=== PATIENT | female | born 1950 | race Caucasian/White ===

== ENCOUNTER 2018-03-10 08:13 | Day surgery (SDC) | payer MEDICARE, OTHER ==
[~2018-03-10 08:13] MED LIST: Buffered Lidocaine 0.9% SYRIN* 5 ML/SYR SYRINGE INTRADERM ONE
[2018-03-10] MEDS ORDERED: Bupivacaine 0.5% SDV PF* 30ML VIAL ONE (09:25)
[2018-03-10] MEDS ORDERED: Midazolam* 1 MG/ML 5 ML VIAL (5 MG) ONE (09:34)
[2018-03-10] MEDS ORDERED: fentaNYL* 50 MCG/ML 2 ML VIAL (100 MCG VIAL) ONE (09:34)
[2018-03-10] MEDS ORDERED: Naloxone* 0.4 MG/ML 1 ML VIAL IV PRN (09:45)
[2018-03-10 10:29] VITALS: BP 130/52
[2018-03-10] MEDS ORDERED: Propofol* 10 MG/ML 20 ML BTL IV PUSH ONE (11:11)
--- NOTE | 2018-03-15 03:47 | OP ---
DATE OF OPERATION: 03/10/18 - [facility] DATE OF : 48 SURGEON: Montana Mirza MD RETAIL SALES LEAD: DES Singh ANESTHESIOLOGIST: Yaz Coles MD ANESTHESIA: Local MAC. PRE-OP DIAGNOSIS: Left volar wrist ganglion cyst. POST-OP DIAGNOSIS: Left volar wrist ganglion cyst. OPERATIVE PROCEDURE: Excision of left volar wrist ganglion cyst, which ended up emanating off the carpometacarpal joint. INDICATIONS: Heidy has a quite large prominent cyst right in the area of the wrist flexion crease and the proximal palm; it is about a centimeter and a half , it attenuated the skin and made the skin very thin over the cyst. We talked about aspirating the cyst versus excising it. She wanted to have it excised. We talked about risks and benefits including risks of stiffness, infection, wound problems. She wanted to proceed. ESTIMATED BLOOD LOSS: 2 mL. COMPLICATIONS: None. FINDINGS: As expected. DESCRIPTION OF PROCEDURE: Heidy was seen in the preoperative holding area. The correct side, site, and procedure were identified. We came back to the operating room, the arm was prepped and draped in the usual fashion. I had infiltrated the operative area with 0.25% plain Marcaine prior to making the skin incision. A time- out was performed after the arm was draped. I made a longitudinal incision, which was brought back obliquely over the wrist flexion crease, so as to not cross the crease at 90 degrees. Full-thickness flaps were raised right off the cyst the dermis from the underlying cyst with a [place] blade. I went ahead and underneath the deep aspect of the cyst. I then traced the cyst back radially where it was noted to be emanating from the carpometacarpal joint. The stalk of the cyst was traced back where it was amputated right at the joint capsule. I then used the Bovie cautery to cauterize the capsule and close off the communication with the joint , so as to try to prevent cyst recurrence. Everything was looking good at this point, so the skin was closed with 4-0 nylon suture. Wounds were dressed and a cock-up wrist splint was applied. Tourniquet was deflated and she was taken to the recovery room in stable condition. [id number]/[facility] #: [id number] [facility]
== END 2018-03-10 10:43 | disposition home or self-care (01) ==
LOC: OREAST 08:13
PROVIDERS: ATTEND Orthopaedic Surgery Hand Surgery
DX: M67.432 Ganglion, left wrist (principal); I10 Essential (primary) hypertension; E78.00 Pure hypercholesterolemia, unspecified; Z87.891 Personal history of nicotine dependence; E78.5 Hyperlipidemia, unspecified
CPT/HCPCS: 88305; J2250; J2704; J3010

== ENCOUNTER 2018-06-23 06:55 | Day surgery (SDC) | payer MEDICARE, MEDICAID ==
[2018-06-23] MEDS ORDERED: ceFAZolin 2 GM in NS PREMIX(*) 0 GM/0 ML BAG IVPB ONE (07:07)
[2018-06-23] MEDS ORDERED: Midazolam* 1 MG/ML 2 ML VIAL (2 MG) ONE (07:45)
[2018-06-23] MEDS ORDERED: fentaNYL* 50 MCG/ML 2 ML VIAL (100 MCG VIAL) ONE (07:45)
[2018-06-23] MEDS ORDERED: Lidocaine 2% PF * 5 ML VIAL ONE (07:46)
[2018-06-23] MEDS ORDERED: Propofol* 10 MG/ML 20 ML BTL IV PUSH ONE (07:50)
[2018-06-23] MEDS ORDERED: Scopolamine 1.5 mg* PATCH ONE (08:02)
[2018-06-23] MEDS ORDERED: Bupivacaine 0.25% SDV* 30 ML ONE (08:08)
[2018-06-23 08:29] VITALS: BP 138/61
[2018-06-23] MEDS ORDERED: Naloxone* 0.4 MG/ML 1 ML VIAL IV PRN (08:33)
[2018-06-26] MEDS ORDERED: Scopolamine PATCH Remove* 1 NOTE MISC PATCH OFF ONE (08:34)
== END 2018-06-23 08:48 | disposition home or self-care (01) ==
LOC: OREAST 06:55
PROVIDERS: ATTEND Orthopaedic Surgery Hand Surgery
DX: G56.02 Carpal tunnel syndrome, left upper limb (principal); I49.3 Ventricular premature depolarization; Z53.09 Procedure and treatment not carried out because of other contraindication; I10 Essential (primary) hypertension; E78.00 Pure hypercholesterolemia, unspecified; Z87.891 Personal history of nicotine dependence
CPT/HCPCS: A9270-GY; J0690; J2250; J2704; J3010

== ENCOUNTER 2018-07-14 09:04 | Day surgery (SDC) | payer MEDICARE, MEDICAID ==
[~2018-07-14 09:04] MED LIST changes: +Dexamethasone IV* 4 MG/ML 1 ML (4 MG) IV SLOW PU ONE; +Famotidine IV* 10 MG/ML 2 ML (20 mg) IV ONE
[2018-07-14] MEDS ORDERED: Dexamethasone IV* 4 MG/ML 1 ML (4 MG) ONE (09:06)
[2018-07-14] MEDS ORDERED: Famotidine IV* 10 MG/ML 2 ML (20 mg) ONE (09:06)
[2018-07-14] MEDS ORDERED: ceFAZolin 2 GM PREMIX in ORs 2 GM/50 ML BAG IVPB ONE (09:17)
[2018-07-14] MEDS ORDERED: fentaNYL* 50 MCG/ML 2 ML VIAL (100 MCG VIAL) ONE (10:48)
[2018-07-14] MEDS ORDERED: Propofol* 10 MG/ML 20 ML BTL IV PUSH ONE (10:48)
[2018-07-14] MEDS ORDERED: Lidocaine 2% PF * 5 ML VIAL ONE (10:48)
[2018-07-14] MEDS ORDERED: Midazolam* 1 MG/ML 2 ML VIAL (2 MG) ONE (10:48)
[2018-07-14] MEDS ORDERED: fentaNYL* 50 MCG/ML 2 ML VIAL (100 MCG VIAL) IV PRN (10:51)
[2018-07-14] MEDS ORDERED: Naloxone* 0.4 MG/ML 1 ML VIAL IV PRN (10:51)
[2018-07-14] MEDS ORDERED: PROCHLORPERAZINE INJ 5 MG/ML 2 ML VIAL IV PRN (10:51)
[2018-07-14] MEDS ORDERED: HYDROcodone/ACETAMIN 5-325 MG* 1 TAB PO PRN (10:51)
[2018-07-14] MEDS ORDERED: oxyCODONE TAB* 5 MG TAB PO PRN (10:51)
[2018-07-14] MEDS ORDERED: Bupivacaine 0.25% SDV* 30 ML ONE (10:56)
[2018-07-14] MEDS ORDERED: Ketorolac INJ* 30 MG/ML 1 ML VIAL ONE (11:06)
[2018-07-14] MEDS ORDERED: EPHEDrine (Pressors)* 50 MG/ML VIAL ONE (11:31)
[2018-07-14] MEDS ORDERED: DiMENhydriNATE IV* 50 MG/ML VIAL ONE (11:33)
[2018-07-14] MEDS ORDERED: Ondansetron INJ* 2 MG/ML VIAL ONE (11:42)
[2018-07-14 12:31] VITALS: BP 126/54
--- NOTE | 2018-07-15 07:27 | OP ---
DATE OF OPERATION: 07/14/18 - [facility] DATE OF : 48 SURGEON: Montana Mirza MD CURING PICKLING PACKER: DES Heck. An assistant teaching professor was needed for the procedure to aid in retraction during the neurolysis portion of the procedure. ANESTHESIOLOGIST: Dr. Benitez. ANESTHESIA: General. PRE-OP DIAGNOSIS: Left wrist median nerve neuritis. POST-OP DIAGNOSIS: Left wrist median nerve neuritis. OPERATIVE PROCEDURE: 1. Left wrist median nerve neurolysis of the wrist with nerve wrapping with AxoGuard nerve wrap. 2. Left wrist hypothenar fat pad transfer. INDICATIONS: Heidy had a ganglion cyst removed, and since then she has had very significant median nerve symptoms including pain and paresthesias down to the index and thumb. Motor component was working. These symptoms have not been alleviated despite significant time, she wanted to see if she can get some relief. I told her that I have explored the nerve, I did not think it was injured, but I would explore and if it did look injured, we would address it at that point. She understands the risks and benefits and she would like to proceed. ESTIMATED BLOOD LOSS: 2 mL. COMPLICATIONS: None. FINDINGS: See above and below. DESCRIPTION OF PROCEDURE: Heidy was seen in the preoperative holding area. The correct site, side, and procedure were identified. We came back to the operating room and the arm was prepped and draped in the usual fashion. A time- out was performed. The arm was exsanguinated with the Esmarch and the tourniquet was inflated to 250 mmHg. I made a longitudinal incision in the proximal palm in the standard location for an open carpal tunnel release. Dissection was carried down through the subcutaneous tissue and palmar fascia and a full thickness flap was raised off the transverse carpal ligament and distal end of brachial fascia. I then released the median nerve from distal to proximal just off the radial aspect of hook of the hamate. I came proximally and released the distal antebrachial fascia. I then elevated the transverse carpal ligament in the distal end of brachial fascia to expose the median nerve in its entirety. There was no injury that was grossly visible to the nerve. There was scar tissue in the area where the cyst had been excised. I decided I need to perform a full neurolysis to release the nerve from all that scar tissue. So, I went ahead and did that with the tenotomy scissors circumferentially around the nerve over about 2 or 3 cm segment right at the wrist flexion crease. Care was taken not to injure the nerve during the neurolysis. At this point, I thought in order to prevent further scar tissue formation and adherence to the nerve, I go ahead and wrap the nerve. So, I opened up a 7 x 14 mm AxoGuard nerve wrap. This was trimmed to appropriate length and then wrapped around the nerve and then volarly, it was secured at the ends with a couple of 6-0 Prolene simple interrupted sutures with 1 more additional 6-0 Prolene suture in the middle. The suture was not sewn to the nerve, only to the nerve wrap keeping it fully wrapped around the nerve. This was confirmed by moving the nerve wrap over the nerve after the sutures were all placed. At this point, last thing was left to do was transfer the hypothenar fat pad and so, I went ahead and released the hypothenar fat pad from the dermis over the hypothenar region. Care was taken to preserve the perforators from the ulnar artery. The fat pad was mobilized and then transferred radially and sewn just to the under surface of the transverse carpal ligament just a few mm from the cut edge of the ligament. This padded the nerve very nicely and very nice soft tissue interpositioned between the nerve and the skin. At this point, the hypothenar fat pad transfer was secured with multiple 4-0 Vicryl sutures. At this point, everything was looking good. The nerve was very nicely covered after the hypothenar fat pad transfer. Therefore, I irrigated out the wound. Skin was closed with 4-0 nylon suture, soft dressings were applied, a volar wrist splint was applied. Marcaine was infiltrated into the operative area. Tourniquet was deflated and she was taken to the recovery room in stable condition. [id number]/[facility] #: [id number] GLENDA
== END 2018-07-14 12:43 | disposition home or self-care (01) ==
LOC: OREAST 09:04
PROVIDERS: ATTEND Orthopaedic Surgery Hand Surgery
DX: G56.12 Other lesions of median nerve, left upper limb (principal); Z87.891 Personal history of nicotine dependence; E78.5 Hyperlipidemia, unspecified; G47.33 Obstructive sleep apnea (adult) (pediatric)
CPT/HCPCS: C1763; J0690; J1100; J1240; J1885; J2250; J2405; J2704; J3010

== ENCOUNTER 2018-09-07 10:41 | Emergency (ER) | payer MEDICARE, MEDICAID ==
--- OUTSIDE RECORDS SUMMARY | 2018-09-07 11:01 | XMS REPORT | Continuity of Care Document ---
:1950 External Reference #:[id number] Author Name Lisa Dean Care Team Providers Name Role Phone Guadalupe Santa MD Primary Care Physician Unavailable Payers Type Date Identification Numbers Payment Provider Subscriber Policy Number: [id number] Medicare Blue Ppo Heidy Arroyo PayID: [id number] [address] [address] [place] [address] Policy Number: [id number] Medicaid Heidy Arroyo Group Name: 1 1 [address] PayID: [id number] [place] [address] Onset: 2006 Policy Number: [id number] [employer] Heidy Arroyo Group Number: [id number] [address] [facility] PayID: [id number] [place] [address] Advance Directives Description No Information Available Problems Date Description Provider Status Onset: 04/29/2018 Carpal tunnel syndrome of left wrist Montana Mirza MD Active Onset: 03/01/2018 Ganglion of hand Montana Mirza MD Active Family History Date Family Member(s) Problem(s) Comments General Esophagus Cancer General Throat Cancer General Uterine Cancer General Hypertension General Hypercholesterolemia General Heart Disease General Diabetes Type II General VA Father Esophagus Cancer Father Throat Cancer : (age 76 Years) Father due to Cancer Mother Uterine Cancer Mother Hypertension Mother Hypercholesterolemia Mother Heart Disease Mother due to Cancer () First Son due to Accidental () First Brother Diabetes Type II Second Brother VA Second Brother due to VA () Third Brother due to Homicide () First Sister Diabetes Type II Social History Type Date Description Comments Sex Unknown Marital Status Lives With Male Partner Occupation Retired Cigarette Use Pack Years - 30 ETOH Use Denies alcohol use Tobacco Use Start: Unknown End: Unknown Patient is a former smoker Smoking Status Reviewed: 09/02/18 Patient is a former smoker Allergies, Adverse Reactions, Alerts Description No Known Drug Allergies Medications Medication Date Status Form Strength Qnty SIG Indications Ordering Provider Amlodipine / Active Tablets 2.5mg 1 by Unknown Besylate 0000 mouth every day Simvastatin / Active Tablets 20mg 1 by Unknown 0000 mouth every day Bystolic / Active Tablets 10mg 1 by Unknown 0000 mouth every day Losartan / Active Tablets 50-12.5mg 1 tab Gutierrez, Potassium/Hydroch 0000 daily by MD Ольга lorothiazide mouth Tramadol HCL 06/23/ Hx Tablets 50mg 30tab 1-2 Montana 2017 - s tablets Mirza, 07/25/ by mouth 2017 every 6 hours as needed pain Tramadol HCL 03/09/ Hx Tablets 50mg 30tab 1-2 Montana 2017 - s tablets Mirza, 04/25/ by mouth 2017 every 6 hours as needed pain Bupropion 12/01/ Hx Tablets 75mg two tabs Everett Narayan - shayne FGabbi 02/14/ Susan Barajas M.D. Valsartan / Hx Tablets 160mg 1 by Unknown 0000 - mouth 03/13/ every day 2017 Calcium Carbonate / Hx Tablets 1500(600C 1 tab by Unknown 0000 - a) mg mouth 02/15/ daily 2017 Mometasone / Hx Suspension 50mcg/Act daily as Unknown Furoate 0000 - directed 2017 Levocetirizine / Hx Tablets 5mg 1 by Unknown Dihydrochloride 0000 - mouth 02/15/ every day 2018 Immunizations Description No Information Available Vital Signs Date Vital Result Comment 09/02/2018 10:45am Height 64.5 inches 5'4.50" Weight 185.00 lb Heart Rate 60 /min BP Systolic Sitting 130 mmHg R BP Diastolic Sitting 60 mmHg R Respiratory Rate 16 /min Pain Level 8 BMI (Body Mass Index) 31.3 kg/m2 08/16/2018 3:12pm Height 64.5 inches 5'4.50" Heart Rate 67 /min BP Systolic 108 mmHg BP Diastolic 50 mmHg Respiratory Rate 18 /min Body Temperature 99.4 F Pain Level 9 07/29/2018 11:22am Height 64.5 inches 5'4.50" Weight 184.00 lb BP Systolic Sitting 122 mmHg BP Diastolic Sitting 64 mmHg Respiratory Rate 16 /min Pain Level 0 BMI (Body Mass Index) 31.1 kg/m2 06/15/2018 11:02am Height 64.5 inches 5'4.50" Weight 187.25 lb Heart Rate 67 /min BP Systolic 130 mmHg BP Diastolic 78 mmHg Respiratory Rate 18 /min Pain Level 0 BMI (Body Mass Index) 31.6 kg/m2 05/20/2018 8:37am Height 64.5 inches 5'4.50" Weight 193.00 lb BP Systolic Sitting 126 mmHg BP Diastolic Sitting 78 mmHg Respiratory Rate 17 /min Pain Level 0 just numbness BMI (Body Mass Index) 32.6 kg/m2 04/29/2018 7:54am Height 64.5 inches 5'4.50" Weight 193.00 lb Heart Rate 66 /min BP Systolic Sitting 108 mmHg BP Diastolic Sitting 50 mmHg Respiratory Rate 16 /min Pain Level 0 BMI (Body Mass Index) 32.6 kg/m2 04/13/2018 9:14am Height 64.5 inches 5'4.50" Weight 192.00 lb Heart Rate 60 /min BP Systolic Sitting 110 mmHg BP Diastolic Sitting 66 mmHg Respiratory Rate 12 /min Pain Level 0 BMI (Body Mass Index) 32.4 kg/m2 03/18/2018 8:20am Height 64.5 inches 5'4.50" Body Temperature 98.0 F Pain Level 3 03/01/2018 11:20am Height 64.5 inches 5'4.50" Weight 196.00 lb BP Systolic Sitting 132 mmHg BP Diastolic Sitting 72 mmHg Respiratory Rate 16 /min Pain Level 2 ache with pressure. BMI (Body Mass Index) 33.1 kg/m2 12/03/2003 1:34pm Height 63 inches Weight 151.00 lb Heart Rate 86 /min BP Systolic Sitting 130 mmHg BP Diastolic Sitting 60 mmHg BP Systolic Standing 130 mmHg BP Diastolic Standing 70 mmHg BMI (Body Mass Index) 26.7 kg/m2 Results Test Date Facility Test Result H/L Range Note Laboratory test 03/10/2018 [facility] Surgical SEE RESULT 1 , [address] [place] [address] [phone] 1 [id number] 2 SEE RESULT BELOW Name: HEIDY ARROYO : [address]: Montana Mirza MD Acct: [id number] Unit: [id number] AGE: 67 Location: [facility] Re03/10/18 SEX: F Status: DEP SDC SPEC: [id number] RANDALL: 03/10/180959 [facility] DR: Montana Mirza MD REQ: [id number] RECD: 03/10/18 STATUS: SOUT _ ORDERED: LEVEL 4 COMMENTS: [id number] FINAL DIAGNOSIS Left wrist, excision: -- Proliferating pilar tumor. PRE-OPERATIVE DIAGNOSIS Left wrist mass GROSS DESCRIPTION The specimen is received in formalin labeled, Left Wrist Ganglion, and consists of a 1.3 by up to 1.3 x 0.7 cm araya-pink irregular rubbery focally cystic subcutaneous soft tissue fragments partially surfaced by a 1.4 x 0.3 cm araya-white skin ellipse with a central 0.2 x 0.2 cm granular to scabrous area. The specimen is inked, serially sectioned and entirely submitted in one cassette. Signed by and Reported on: Juli Kidd MD 03/11/18 1324 END OF REPORT DEPARTMENT OF PATHOLOGY, [address] [place] [address] Travis Pantoja M.D. Director [facility] # [id number] Procedures Date Code Description Status 07/14/2018 80825 Carpal Tunnel Release Completed 07/14/2018 17798 Carpal Tunnel Release Completed 07/14/2018 12053 Skin Tissue Rearrange To 10 SQ CM Completed FRHD/CHK/CHN/MTH/NK/Ax/Gen/H/FT 07/14/2018 87418 Skin Tissue Rearrange To 10 SQ CM Completed FRHD/CHK/CHN/MTH/NK/Ax/Gen/H/FT 03/10/2018 15652 Excision Ganglion Wrist/ Dorsal Or Volar; Primary Completed 03/10/2018 47361 Excision Ganglion Wrist/ Dorsal Or Volar; Primary Completed 03/01/2018 44236 Rad Exam; Wrist, Comp, Min 3 Views Completed 12/12/2003 38234 ECHO/Stress Completed 12/12/2003 51683 Stress Test Completed 12/06/2003 17787 Pulse Doppler & Continuous Wave Completed 12/06/2003 08018 Pulse Doppler & Continuous Wave Completed 12/06/2003 55654 Echocardiogram Completed 12/03/2003 97027 EKG Tracing & Interpretation Completed Encounters Type Date Location Provider Dx Diagnosis Office Visit 04/13/2018 Orthopedic Marcos Cole, G56.02 Carpal tunnel 9:30a [employer] Customer Sales Representative AT syndrome, left Timi upper limb Office Visit 03/01/2018 Orthopedic Montana Mirza, M67.442 Ganglion, left 10:30a [employer] Customer Sales Representative AT hand Timi M25.532 Pain in left wrist Office Visit 04/11/2008 Neurosurgery Jamel Warren 722.10 Intervertebral Disc 4:00p [employer] Customer Sales Representative AT Julio Hatfield 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
--- OUTSIDE RECORDS SUMMARY | 2018-09-07 11:02 | XMS REPORT | Continuity of Care Document ---
:1950 External Reference #:[id number] Author Name Guadalupe Santa MD Address [address] [place] [address] Care Team Providers Name Role Phone Guadalupe Santa MD Primary Care Physician Unavailable Payers Type Date Identification Numbers Payment Provider Subscriber Effective: Policy Number: [id number] BCBS Medicare Blue Heidy Morillo 2014 Group Number: [id number] [address] [address] PayID: [id number] [place] [address] Policy Number: [id number] Medicaid ### >12 Heidy Morillo PayID: [id number] [address] [place] [address] Advance Directives Description No Information Available Problems Date Description Provider Status Onset: 03/12/2014 Mixed hyperlipidemia Guadalupe Santa MD Active Onset: 03/12/2014 Allergic rhinitis Guadalupe Santa MD Active Onset: 01/24/2010 Psoriasis Guadalupe Santa MD Active Onset: 08/06/2015 Essential hypertension Guadalupe Santa MD Active Onset: 04/06/2017 Solitary nodule of lung Guadalupe Santa MD Active Onset: 02/18/2018 Type 2 diabetes mellitus Guadalupe Santa MD Active Onset: 08/22/2018 Impaired fasting glycaemia Guadalupe Santa MD Active Onset: 05/23/2018 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 Onset: 05/23/2018 Chronic nonalcoholic liver disease Guadalupe Santa MD Active Onset: 05/23/2018 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 Onset: 01/21/2016 Impaired fasting glycaemia Guadalupe Santa MD Inactive Inactive: 04/01/2018 Onset: 02/20/2010 Gastroesophageal reflux disease Guadalupe Santa MD Resolved Resolved: 02/19/2015 Family History Date Family Member(s) Problem(s) Comments General Cancer, Esophagus Father Cancer, Throat Father Cancer, Esophagus : (age Father due to Cancer, Throat 73 Years) Mother Cancer, Uterine Mother Hypertension : (age Mother due to Cancer uterine 94 Years) Mother Hypercholesterolemia Mother Heart Disease has a pacer : (age First Son due to Accident to farm accident 16 Years) First Brother Diabetes, Adult Diabetes Mellitus,II : (age Second Brother due to [place] 62 Years) : (age Third Brother due to Murdered 40 Years) First Sister Diabetes, Adult Diabetes Mellitus,II Social History Type Date Description Comments Sex Unknown Education Highest level completed, 12th grade Marital Status Lives With Male Partner Smoke-Free Home is smoke-free Pets None 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 Abuse No history of abuse Hobbies Gardening Drive Patient drives Tobacco Use Start: 09/13/68 End: Former Cigarette Smoker 32 pack year history - 08/13/02 no longer meets criteria for low dose lung cancer screening Smoking Status Reviewed: 11/22/17 Former Cigarette Smoker 32 pack year history - no longer meets criteria for low dose lung cancer screening ETOH Use Denies alcohol use Tobacco Use Start: Unknown End: Patient is a former Unknown smoker Allergies, Adverse Reactions, Alerts Description No Known Drug Allergies Medications Medication Date Status Form Strength Qnty SIG Indications Ordering Provider Cetirizine HCL 04/26 Active Tablets 10mg 30tab 1 by mouth s every day MD Guadalupe Amlodipine 10/13 Active Tablets 2.5mg 60tab 2 by mouth I10 Kiet Besbettina s every day MD Guadalupe Simvastatin 09/23 Active Tablets 20mg 30tab 1 tab by E78.2 Kiet s mouth MD Guadalupe every day Bystolic 09/01 Active Tablets 10mg 30tab 1 by mouth I10 Kiet, s every day MD Guadalupe Calcium Carbonate 01/24 Active Tablets 1500mg 1 PO qd MD Guadalupe Losartan Active Tablets 50-12.5mg 1 by mouth I10 Unknown Potassium/Hydroch /0000 every day lorothiazide Multivitamin Active Chewtabs one orally Unknown Adult Extra /0000 daily Vitamin C Valsartan 04/01 Hx Tablets 40mg 1 by mouth I10 Kiet, /2017 every day MD Guadalupe - 04/01 Amlodipine 09/23 Hx Tablets 2.5mg 30tab 1 by mouth I10 Kiet, Bes s every day MD Guadalupe - 10/13 Valsartan 08/10 Hx Tablets 160mg 90tab 1 by mouth I10 Kiet, s daily MD Guadalupe - 04/01 Bystolic 07/29 Hx Tablets 5mg 30tab 1 pill by I10 Kiet, s mouth once MD Guadalupe - daily 09/01 Valsartan 07/15 Hx Tablets 40mg 90tab 1 by mouth I10 Kiet, s every day MD Guadalupe - 08/10 Valsartan 07/15 Hx Tablets 80mg 30tab 1 by mouth Kiet, s every day MD Guadalupe - 09/01 Valsartan 07/13 Hx Tablets 40mg 90tab 3 by mouth I10 Kiet, s every day MD Guadalupe - 07/15 Valsartan 07/06 Hx Tablets 80mg 30tab 1 by mouth I10 Kiet, s every day MD Guadalupe - 07/13 Metoprolol 06/18 Hx Tablets ER 50mg 30tab 1 by mouth I10 Kiet, Succinate 24HR s every day MD Guadalupe - 07/29 Valsartan 06/11 Hx Tablets 40mg 30tab 1 by mouth I10 Kiet, s every day MD Guadalupe - 07/06 Lisinopril 06/03 Hx Tablets 20mg 1 by mouth I10 Kiet, /2016 every day MD Guadalupe - 06/11 Hydrochlorothiazi 06/03 Hx Tablets 12.5mg 30tab 1 by mouth I10 Kiet, de s every day MD Guadalupe - 06/11 Lisinopril 04/30 Hx Tablets 40mg 90tab 1 by mouth I10 Kiet, s every day MD Guadalupe - 06/03 Clotrimazole/Beta 04/24 Hx Cream 1-0.05% 15gm apply L40.9 Kiet methasone twice a MD Guadalupe Dipropionate - day x 2 04/05 weeks. Clobetasol 05 Hx Solution 0.05% 50ml apply L40.9 Kiet Propionate topically MD Guadalupe - twice a 04/05 day to affected area Glucosamine 08/06 Hx Tablets Kiet MD Guadalupe Complex Advanced - 04/05 Vitamin B Complex 08/06 Hx Tablets 30tab 1 by mouth Kiet s every day MD Guadalupe - 11/22 Zostavax 12/13 Hx Solution [id number]/ 1unit 1 dose Rec 0.65ML s intramuscu MD Guadalupe - lar x 1 02/19 [facility] Allergy 06/05 Hx Capsules 10mg 1 by mouth Kiet every day MD Guadalupe - as needed 04/05 allergies Simvastatin 03/15 Hx Tablets 40mg 90tab 1 by mouth E78.2 s every day MD Guadalupe - 09/23 Betamethasone 04/10 Hx Cream 0.05% 45uni apply to Yunier Santa ts affected MD Guadalupe - areas 12/13 twice a day as needed Flonase 10/31 Hx Suspension 50mcg/Act 16uni 2 sprays ts to each MD Guadalupe - nostril 08/06 daily for nasal congestion Ketoconazole 10/31 Hx Shampoo 2% 120un use daily L40.9 Kiet its as needed MD Guadalupe - 01/26 Lisinopril Hx Tablets 20mg 90tab take one I10 s tablet by MD Guadalupe - mouth 04/30 every day Clobetasol Hx Cream 0.05% apply to Unknown Propionate /0000 area twice Emollient - a day for 01/26 two weeks Calcipotriene Hx Ointment 0.005% apply to Unknown /0000 affected - area 01/26 twice a day as needed Mometasone Hx Suspension 50mcg/Act qd Unknown Fur / - 04/26 Levocetirizine Hx Tablets 5mg 1 PO qd Unknown Dihydrochloride /0000 - 04/26 Losartan 00 Hx Tablets 25mg 1 by mouth I10 Helen Gutierrez /0000 every day Ольга LAKHANI - - please 04/04 dose Medications Administered in Office Medication Date Status Form Strength Qnty SIG Indications Ordering Provider PPD Administered Injection Unknown 5 Immunizations CPT Code Status Date Vaccine Reaction Lot # [id number] Given 06/15/2018 Flu Vaccine NOS 05379 Given 06/15/2018 Fluzone Highdose Age 65 And Over Preservative & Antibiotic Free 95091 Given 02/18/2018 Prevnar 13 Pneumococal Conjugate Pt tolerated well [id number] Vaccine Q2039 Given 06/16/2017 Flu Vaccine NOS Q2039 Given 06/30/2016 Flu Vaccine NOS 34833 Given 08/02/2015 Hepatitis B Vac Ped/Adolescent 3 Dose Schedule Q2039 Given 07/15/2015 Flu Vaccine NOS 84643 Given 02/12/2015 Hepatitis B Vac Ped/Adolescent 3 Dose Schedule 20261 Given 01/19/2015 Zoster (Zostavax) 76542 Given 01/01/2015 Hepatitis B Vac Ped/Adolescent 3 Dose Schedule 38158 Given 09/04/2014 Pneumococcal 23 Immunization Adult Or Immunosuppressed Patient 16976 Given 06/15/2014 Fluzone Highdose Age 65 And Over Preservative & Antibiotic Free 18664 Given 06/27/2013 Afluria Or Fluvirin Flu Vac Intramuscular 51748 Given 07/06/2011 Afluria Or Fluvirin Flu Vac VIS DATE 04/07/11 Intramuscular 04365 Given 03/30/2011 Tdap (Adacel) Ages 7 And Above Only 79046 Refused 05/23/2018 Afluria Or Fluvirin Flu Vac Intramuscular 88362 Refused 08/06/2015 Prevnar 13 Pneumococal Conjugate DECLINED PER TRIAGE. Vaccine Vital Signs Date Vital Result Comment 08/22/2018 12:58pm Weight 186.00 lb Heart Rate 69 /min BP Systolic 134 mmHg BP Diastolic 70 mmHg Respiratory Rate 16 /min Height 62.75 inches 5'2.75" O2 % BldC Oximetry 98 % Ra BMI (Body Mass Index) 33.2 kg/m2 05/23/2018 1:12pm Weight 184.00 lb Heart Rate 70 /min BP Systolic 132 mmHg BP Diastolic 80 mmHg Respiratory Rate 16 /min Height 62.75 inches 5'2.75" 11/22/17 BMI (Body Mass Index) 32.9 kg/m2 04/01/2018 10:50am Weight 196.00 lb Heart Rate 76 /min BP Systolic 110 mmHg BP Diastolic 70 mmHg Respiratory Rate 18 /min Height 62.75 inches 5'2.75" 11/22/17 BMI (Body Mass Index) 35.0 kg/m2 02/18/2018 1:01pm Weight 196.00 lb Heart Rate 68 /min BP Systolic 130 mmHg BP Diastolic 80 mmHg Respiratory Rate 18 /min Height 62.75 inches 5'2.75" 11/22/17 BMI (Body Mass Index) 35.0 kg/m2 11/22/2017 9:57am Weight 201.12 lb Heart Rate 72 /min BP Systolic 120 mmHg BP Diastolic 74 mmHg Respiratory Rate 18 /min Height 62.75 inches 5'2.75" 11/22/17 BMI (Body Mass Index) 35.9 kg/m2 09/23/2017 10:37am Weight 198.00 lb Heart Rate 76 /min BP Systolic 160 mmHg BP Diastolic 70 mmHg BP Systolic Recheck 150 mmHg BP Diastolic Recheck 82 mmHg Respiratory Rate 18 /min Height 63 inches 5'3" 09/23/17 BMI (Body Mass Index) 35.1 kg/m2 09/01/2017 8:32am Weight 196.00 lb Heart Rate 72 /min BP Systolic 170 mmHg pts b/p cuff 174/80 BP Diastolic 70 mmHg pts b/p cuff 174/80 Respiratory Rate 18 /min Height 63 inches 5'3" 01/26/17 BMI (Body Mass Index) 34.7 kg/m2 08/10/2017 1:32pm Weight 200.00 lb Heart Rate 80 /min BP Systolic 122 mmHg BP Diastolic 70 mmHg Respiratory Rate 18 /min Height 63 inches 5'3" 01/26/17 BMI (Body Mass Index) 35.4 kg/m2 07/29/2017 1:04pm Weight 193.00 lb Heart Rate 76 /min BP Systolic 152 mmHg BP Diastolic 72 mmHg Respiratory Rate 18 /min Height 63 inches 5'3" 01/26/17 BMI (Body Mass Index) 34.2 kg/m2 07/06/2017 9:56am Weight 192.00 lb Heart Rate 76 /min BP Systolic 140 mmHg BP Diastolic 70 mmHg Respiratory Rate 18 /min Height 63 inches 5'3" 01/26/17 BMI (Body Mass Index) 34.0 kg/m2 06/18/2017 3:22pm Weight 192.00 lb Heart Rate 76 /min BP Systolic 150 mmHg BP Diastolic 70 mmHg Respiratory Rate 18 /min Height 63 inches 5'3" 01/26/17 BMI (Body Mass Index) 34.0 kg/m2 06/11/2017 10:07am Weight 192.00 lb Heart Rate 84 /min BP Systolic 142 mmHg BP Diastolic 70 mmHg Respiratory Rate 18 /min Height 63 inches 5'3" 01/26/17 BMI (Body Mass Index) 34.0 kg/m2 06/03/2017 1:58pm Weight 192.00 lb Heart Rate 84 /min BP Systolic 150 mmHg pts cuff 158/76 BP Diastolic 70 mmHg pts cuff 158/76 Respiratory Rate 18 /min Height 63 inches 5'3" 01/26/17 BMI (Body Mass Index) 34.0 kg/m2 05/28/2017 10:18am Weight 192.00 lb Heart Rate 88 /min BP Systolic 130 mmHg BP Diastolic 68 mmHg Respiratory Rate 18 /min Height 63 inches 5'3" 01/26/17 BMI (Body Mass Index) 34.0 kg/m2 04/06/2017 2:33pm Weight 195.00 lb Heart Rate 76 /min BP Systolic 134 mmHg BP Diastolic 72 mmHg Respiratory Rate 16 /min Height 63 inches 5'3" 01/26/17 BMI (Body Mass Index) 34.5 kg/m2 01/26/2017 9:53am Weight 195.00 lb Heart Rate 80 /min BP Systolic 132 mmHg BP Diastolic 62 mmHg Respiratory Rate 18 /min Height 63 inches 5'3" 01/26/17 BMI (Body Mass Index) 34.5 kg/m2 07/31/2016 1:05pm Weight 186.00 lb Heart Rate 76 /min BP Systolic 122 mmHg BP Diastolic 60 mmHg Respiratory Rate 16 /min Height 63 inches 5'3" 07/31/16 BMI (Body Mass Index) 32.9 kg/m2 05/13/2016 11:15am Weight 179.00 lb Heart Rate 80 /min BP Systolic 152 mmHg BP Diastolic 60 mmHg Respiratory Rate 18 /min Height 63 inches 5'3" BMI (Body Mass Index) 31.7 kg/m2 04/24/2016 9:14am Weight 177.00 lb Heart Rate 76 /min BP Systolic 112 mmHg BP Diastolic 70 mmHg Respiratory Rate 18 /min Height 63 inches 5'3" BMI (Body Mass Index) 31.4 kg/m2 01/21/2016 8:04am Weight 191.00 lb Heart Rate 68 /min BP Systolic 138 mmHg BP Diastolic 70 mmHg Respiratory Rate 18 /min Height 63 inches 5'3" BMI (Body Mass Index) 33.8 kg/m2 08/06/2015 9:05am Weight 189.00 lb Heart Rate 76 /min BP Systolic 140 mmHg BP Diastolic 70 mmHg Respiratory Rate 18 /min Height 63 inches 5'3" BMI (Body Mass Index) 33.5 kg/m2 02/19/2015 9:09am Weight 185.00 lb Heart Rate 68 /min BP Systolic 130 mmHg BP Diastolic 60 mmHg Respiratory Rate 18 /min Height 63 inches 5'3" BMI (Body Mass Index) 32.8 kg/m2 12/13/2014 3:55pm Weight 193.00 lb Heart Rate 76 /min BP Systolic Recheck 132 mmHg BP Diastolic Recheck 70 mmHg Respiratory Rate 18 /min Height 63 inches 5'3" BMI (Body Mass Index) 34.2 kg/m2 09/04/2014 9:23am Weight 180.00 lb Heart Rate 76 /min BP Systolic 124 mmHg BP Diastolic 72 mmHg Respiratory Rate 18 /min Height 63 inches 5'3" 06/12/2014 8:06am Weight 180.00 lb Heart Rate 64 /min BP Systolic 114 mmHg BP Diastolic 60 mmHg Respiratory Rate 17 /min Height 63 inches 5'3" 06/05/2014 10:26am Weight 180.00 lb Heart Rate 64 /min BP Systolic 140 mmHg BP Diastolic 60 mmHg Respiratory Rate 18 /min Height 63 inches 5'3" 03/12/2014 8:51am BP Systolic 136 mmHg BP Diastolic 70 mmHg 03/12/2014 8:51am Weight 186.38 lb Heart Rate 78 /min BP Systolic 148 mmHg BP Diastolic 64 mmHg Respiratory Rate 18 /min Height 63 inches 5'3" 02/20/2014 1:41pm Body Temperature 98.5 F Weight 186.00 lb Heart Rate 84 /min BP Systolic 150 mmHg BP Diastolic 70 mmHg Respiratory Rate 18 /min Height 63 inches 5'3" Results Test Date Facility Test Result H/L Range Note Basic (BMP) 08/11/2018 [facility] Sodium 143 mmol/L 135-146 1, 2 Potassium 4.2 mmol/L 3.5-5.2 Chloride# 106 mmol/L 97-110 3 Carbon Dioxide 28 mmol/L 24-34 Glucose 118 mg/dL High 70-105 BUN 21 mg/dL 6-26 Creatinine 0.9 mg/dL 0.5-1.4 Calcium 9.9 mg/dL 8.5-10.2 Non Kate Egfr >60 >60 4 Kate Egfr >60 >60 5 Anion Gap 9 mmol/L 5-15 6 Hemoglobin A1c 08/11/2018 [facility] Hemoglobin A1c 6.3 % High 4.1-5.9 Estimated Average Glucose Calc 134 mg/dL 71-140 Lipid Treatment 08/11/2018 [facility] Cholesterol 152 mg/dL 50-199 Triglycerides 111 mg/dL 30-200 HDL 43 mg/dL 35-85 7 Chol/ HDL Ratio 3.6 ratio Low 3.7-5.6 VLDL 22 mg/dL 2-29 LDL (Calc) 87 mg/dL 20-99 8 Alt 18 U/L 3-42 Ast 15 U/L 8-42 Laboratory test finding 08/11/2018 [facility] TSH 0.93 uIU/mL 0.35-4.94 Basic (BMP) 05/19/2018 [facility] Sodium 142 mmol/L 135-146 9 Potassium 4.2 mmol/L 3.5-5.2 Chloride# 105 mmol/L 97-110 10 Carbon Dioxide 29 mmol/L 24-34 Glucose 116 mg/dL High 70-105 BUN 20 mg/dL 6-26 Creatinine 0.9 mg/dL 0.5-1.4 Calcium 9.8 mg/dL 8.5-10.2 Non Kate Egfr >60 >60 11 Kate Egfr >60 >60 12 Anion Gap 8 mmol/L 5-15 13 Hemoglobin A1c 05/19/2018 [facility] Hemoglobin A1c 6.4 % High 4.1-5.9 Estimated Average Glucose Calc 137 mg/dL 71-140 Hemoglobin A1c 03/31/2018 [facility] Hemoglobin A1c 6.9 % High 4.1-5.9 Estimated Average Glucose Calc 151 mg/dL High 71-140 Basic (BMP) 02/15/2018 [facility] Sodium 140 mmol/L 135-146 14, 15 Potassium 4.0 mmol/L 3.5-5.2 Chloride# 104 mmol/L 97-110 16 Carbon Dioxide 27 mmol/L 24-34 Glucose 131 mg/dL High 70-105 BUN 19 mg/dL 6-26 Creatinine 0.9 mg/dL 0.5-1.4 Calcium 9.2 mg/dL 8.5-10.2 Non Kate Egfr >60 >60 17 Kate Egfr >60 >60 18 Anion Gap 9 mmol/L 5-15 19 Hemoglobin A1c 02/15/2018 [facility] Hemoglobin A1c 6.8 % High 4.1-5.9 Estimated Average Glucose Calc 148 mg/dL High 71-140 Lipid Treatment 02/15/2018 [facility] Cholesterol 134 mg/dL 50-199 Triglycerides 93 mg/dL 30-200 HDL 42 mg/dL 35-85 20 Chol/ HDL Ratio 3.2 ratio Low 3.7-5.6 VLDL 19 mg/dL 2-29 LDL (Calc) 73 mg/dL 20-99 21 Alt 22 U/L 3-42 Ast 16 U/L 8-42 Continuous Oximetry 12/06/2017 [facility] Oximetry 95 % N 93-98 22 (315)- - Fio2 21 N 21-100 Heart Rate 92 BPM Patient Status RESTING Nocturnal Oximetry 12/06/2017 [facility] Low Oximetry 84 % Low 93-98 (315)- - Fio2 21 N 21-100 Heart Rate 75 BPM Duration Of Study 437 MINUTES Total Time Below 88% 14.1 MINUTES Hemoglobin A1c 11/18/2017 [facility] Hemoglobin A1c 6.7 % High 4.1-5.9 23 Estimated Average Glucose Calc 146 mg/dL High 71-140 Comprehensive Met Panel-[facility] 11/18/2017 [facility] Sodium 141 mmol/L 135- 146 24 Potassium 4.5 mmol/L 3.5-5.2 Chloride# 106 mmol/L 97-110 25 Carbon Dioxide 26 mmol/L 24-34 Glucose 133 mg/dL High 70-105 BUN 19 mg/dL 6-26 Creatinine 0.8 mg/dL 0.5-1.4 Calcium 9.3 mg/dL 8.5-10.2 Total Protein 7.0 g/dL 6.0-8.0 Albumin 4.4 g/dL 3.6-4.9 Globulin 2.6 g/dL 2.0-3.5 A/G Ratio 1.7 Ratio 1.0-2.2 Total Bilirubin 0.4 mg/dL 0.1-1.3 Alkaline Phosphatase 53 U/L 24-140 Alt 26 U/L 3-42 Ast 18 U/L 8-42 Kate Egfr >60 >60 26 Non Kate Egfr >60 >60 27 Anion Gap 9 mmol/L 5-15 28 Hemoglobin A1c 08/04/2017 [facility] Hemoglobin A1c 6.4 % High 4.1-5.9 Estimated Average Glucose Calc 137 71-140 Basic ([facility]) 08/04/2017 [facility] Sodium 141 mmol/L 135-146 29 Potassium 4.4 mmol/L 3.5-5.2 Chloride# 105 mmol/L 97-110 30 Carbon Dioxide 24 mmol/L 24-34 Glucose 115 mg/dL High 70-105 Creatinine 0.8 mg/dL 0.5-1.4 Calcium 9.6 mg/dL 8.5-10.2 Non Kate Egfr >60 >60 31 Kate Egfr >60 >60 32 Anion Gap 12 mmol/L 7-16 33 BUN 18 mg/dL 6-26 Lipid Treatment 08/04/2017 [facility] Cholesterol 139 mg/dL 50-199 Triglycerides 102 mg/dL 30-200 HDL 45 mg/dL 35-85 34 Chol/ HDL Ratio 3.1 ratio Low 3.7-5.6 VLDL 20 mg/dL 2-29 LDL (Calc) 74 mg/dL 20-99 35 Alt 20 U/L 3-42 Ast 15 U/L 8-42 Laboratory test 06/18/2017 [facility] Troponin-I < 0.015 ng/mL 36 finding (315)- - Laboratory test 06/18/2017 [facility] CK 93 U/L N 26- 192 finding (315)- - Basic (BMP) 06/03/2017 [facility] Sodium 142 mmol/L 135-146 37 Potassium 4.2 mmol/L 3.5-5.2 Chloride# 106 mmol/L 97-110 38 Carbon Dioxide 26 mmol/L 24-34 Glucose 134 mg/dL High 70-105 BUN 15 mg/dL 6-26 Creatinine 0.8 mg/dL 0.5-1.4 Calcium 9.7 mg/dL 8.5-10.2 Non Kate Egfr >60 >60 39 Kate Egfr >60 >60 40 Anion Gap 10 mmol/L 7-16 41 Hemoglobin A1c 04/07/2017 [facility] Hemoglobin A1c 6.5 % High 4.1-5.9 Estimated Average Glucose Calc 140 71-140 Laboratory test 04/07/2017 [facility] Hepatitis C Virus NONREACTIVE Nonreactive finding Antibody CBC With Auto Diff 04/07/2017 [facility] WBC 4.1 K/uL 4.1-11.0 RBC 4.29 M/uL 4.00-5.40 Hemoglobin 12.8 gm/dL 12.0-16.0 Hematocrit 38.1 % 36.0-47.0 MCV 88.9 fL 80.0-97.0 MCH 29.8 pg 27.0-32.0 MCHC 33.6 g/dL 32.0-36.0 RDW 13.1 % 11.5-14.5 PLT Count 225 K/ul 140-400 Neutrophil 48.3 % 35.0-75.0 Lymphocyte 41.5 % 16.0-52.0 Monocyte 5.6 % 2.0-10.0 Eosinophil 3.6 % 0.0-5.0 Basophil 1.0 % 0.0-4.0 Abs Neutrophils 2.0 K/uL Low 2.1-8.0 Abs Lymphocytes 1.7 K/uL 0.8-5.5 Abs Monocytes 0.2 K/uL 0.1-1.0 Abs Eosinophils 0.1 K/uL 0.0-0.5 Abs Basophils 0.0 K/uL 0.0-0.3 Comprehensive Met Panel-[facility] 04/07/2017 [facility] Sodium 139 mmol/L 135- 146 42 Potassium 4.4 mmol/L 3.5-5.2 Chloride# 103 mmol/L 97-110 43 Carbon Dioxide 28 mmol/L 24-34 Glucose 116 mg/dL High 70-105 BUN 14 mg/dL 6-26 Creatinine 0.9 mg/dL 0.5-1.4 Calcium 9.3 mg/dL 8.5-10.2 Total Protein 6.9 g/dL 6.0-8.0 Albumin 4.2 g/dL 3.6-4.9 Globulin 2.7 g/dL 2.0-3.5 A/G Ratio 1.6 Ratio 1.0-2.2 Total Bilirubin 0.4 mg/dL 0.1-1.3 Alkaline Phosphatase 57 U/L 24-140 Alt 22 U/L 3-42 Ast 16 U/L 8-42 Kate Egfr >60 >60 44 Non Kate Egfr >60 >60 45 Anion Gap 8 mmol/L 7-16 46 [facility] 139 mg/dL 50-199 47 Triglycerides 70 mg/dL 30-200 HDL 44 mg/dL 35-85 48 Chol/ HDL Ratio 3.2 ratio Low 3.7-5.6 VLDL 14 mg/dL 2-29 LDL (Calc) 82 mg/dL 20-99 49 Alt 20 U/L 3-42 Ast 16 U/L 8-42 CBC With Auto Diff 01/20/2017 [facility] WBC 4.5 K/uL 4.1-11.0 RBC 4.39 M/uL 4.00-5.40 Hemoglobin 12.9 gm/dL 12.0-16.0 Hematocrit 39.3 % 36.0-47.0 MCV 89.5 fL 80.0-97.0 MCH 29.5 pg 27.0-32.0 MCHC 32.9 g/dL 32.0-36.0 RDW 13.4 % 11.5-14.5 PLT Count 224 K/ul 140-400 Neutrophil 51.6 % 35.0-75.0 Lymphocyte 37.5 % 16.0-52.0 Monocyte 6.1 % 2.0-10.0 Eosinophil 3.8 % 0.0-5.0 Basophil 1.0 % 0.0-4.0 Abs Neutrophils 2.3 K/uL 2.1-8.0 Abs Lymphocytes 1.7 K/uL 0.8-5.5 Abs Monocytes 0.3 K/uL 0.1-1.0 Abs Eosinophils 0.2 K/uL 0.0-0.5 Abs Basophils 0.0 K/uL 0.0-0.3 Hemoglobin A1c 01/20/2017 [facility] Hemoglobin A1c 6.4 % High 4.1-5.9 Estimated Average Glucose Calc 137 71-140 Basic (BMP) 01/20/2017 [facility] Sodium 140 mmol/L 135-146 50 Potassium 5.3 No visible h <SEE NOTE> mmol/L High 3.5-5.2 51 Chloride# 106 mmol/L 97-110 52 Carbon Dioxide 31 mmol/L 24-34 Glucose 115 mg/dL High 70-105 BUN 20 mg/dL 6-26 Creatinine 0.8 mg/dL 0.5-1.4 Calcium 9.4 mg/dL 8.5-10.2 Non Kate Egfr >60 >60 53 Kate Egfr >60 >60 54 Anion Gap 8 mmol/L 7-16 55 Laboratory test finding 01/20/2017 [facility] TSH 1.35 uIU/mL 0.35-4.94 Lipid Treatment 07/16/2016 [facility] Cholesterol 146 mg/dL 50-199 56 Triglycerides 79 mg/dL 30-200 HDL 48 mg/dL 35-85 57 Chol/ HDL Ratio 3.0 ratio Low 3.7-5.6 VLDL 16 mg/dL 2-29 LDL (Calc) 82 mg/dL 20-99 58 Alt 17 U/L 3-42 Ast 15 U/L 8-42 Basic ([facility]) 07/16/2016 [facility] Sodium 139 mmol/L 134-142 Potassium 4.3 mmol/L 3.5-5.2 Chloride 106 mmol/L 97-109 Carbon Dioxide 26 mmol/L 24-34 Glucose 104 mg/dL 70-105 BUN 15 mg/dL 6-26 Creatinine 0.6 mg/dL 0.5-1.4 Calcium 9.3 mg/dL 8.5-10.2 Anion Gap 11 mmol/L 6-14 Non Kate Egfr >60 >60 59 Kate Egfr >60 >60 60 Laboratory test finding 07/16/2016 [facility] Hemoglobin A1c 6.1 % High 4.1- 5.9 Basic ([facility]) 04/07/2016 [facility] Sodium 140 mmol/L 134-142 61 Potassium 4.3 mmol/L 3.5-5.2 Chloride 107 mmol/L 97-109 Carbon Dioxide 28 mmol/L 24-34 Glucose 101 mg/dL 70-105 BUN 16 mg/dL 6-26 Creatinine 0.8 mg/dL 0.5-1.4 Calcium 9.5 mg/dL 8.5-10.2 Anion Gap 9 mmol/L 6-14 Non Kate Egfr >60 >60 62 Kate Egfr >60 >60 63 Laboratory test finding 04/07/2016 [facility] Hemoglobin A1c 6.0 % High 4.1- 5.9 Lipid Treatment 01/10/2016 [facility] Cholesterol 135 mg/dL 50-199 64 Triglycerides 100 mg/dL 30-200 HDL 43 mg/dL 35-85 65 Chol/ HDL Ratio 3.1 ratio Low 3.7-5.6 VLDL 20 mg/dL 2-29 LDL (Calc) 72 mg/dL 20-99 66 Alt 21 U/L 3-42 Ast 17 U/L 8-42 Basic (BMP) 01/10/2016 [facility] Sodium 136 mmol/L 134-142 Potassium 4.4 mmol/L 3.5-5.2 Chloride 101 mmol/L 97-109 Carbon Dioxide 30 mmol/L 24-34 Glucose 107 mg/dL High 70-105 BUN 16 mg/dL 6-26 Creatinine 0.8 mg/dL 0.5-1.4 Calcium 9.3 mg/dL 8.5-10.2 Anion Gap 9 mmol/L 6-14 Non Kate Egfr >60 >60 67 Kate Egfr >60 >60 68 CBC With Auto Diff 01/10/2016 [facility] WBC 4.6 K/uL 4.1-11.0 RBC 4.50 M/uL 4.00-5.40 Hemoglobin 13.1 gm/dL 12.0-16.0 Hematocrit 40.2 % 36.0-47.0 MCV 89.4 fL 80.0-97.0 MCH 29.0 pg 27.0-32.0 MCHC 32.4 g/dL 32.0-36.0 RDW 12.8 % 11.5-14.5 PLT Count 227 K/ul 140-400 Neutrophil 55.1 % 35.0-75.0 Lymphocyte 35.2 % 16.0-52.0 Monocyte 5.3 % 2.0-10.0 Eosinophil 3.5 % 0.0-5.0 Basophil 0.9 % 0.0-4.0 Abs Neutrophils 2.5 K/uL 2.1-8.0 Abs Lymphocytes 1.6 K/uL 0.8-5.5 Abs Monocytes 0.2 K/uL 0.1-1.0 Abs Eosinophils 0.2 K/uL 0.0-0.5 Abs Basophils 0.0 K/uL 0.0-0.3 Laboratory test finding 01/10/2016 [facility] TSH 1.41 uIU/mL 0.35-4.94 Lipid Treatment 07/30/2015 [facility] Cholesterol 136 mg/dL 50-199 Triglycerides 67 mg/dL 30-200 HDL 37 mg/dL 35-85 69 Chol/ HDL Ratio 3.7 ratio 3.7-5.6 VLDL 13 mg/dL 2-29 LDL (Calc) 86 mg/dL 20-99 70 Alt 23 U/L 3-42 Ast 17 U/L 8-42 Lipid Treatment 02/13/2015 [facility] Cholesterol 144 mg/dL 50-199 Triglycerides 125 mg/dL 30-200 HDL 44 mg/dL 35-85 71 Chol/ HDL Ratio 3.3 ratio Low 3.7-5.6 VLDL 25 mg/dL 2-29 LDL (Calc) 75 mg/dL 20-99 72 Alt 24 U/L 3-42 Ast 19 U/L 8-42 Comprehensive Metabolic (CMP) 02/13/2015 [facility] Sodium 139 mmol/L 134- 142 Potassium 4.6 mmol/L 3.5-5.2 Chloride 104 mmol/L 97-109 Carbon Dioxide 28 mmol/L 24-34 Glucose 102 mg/dL 70-105 BUN 17 mg/dL 6-26 Creatinine 0.8 mg/dL 0.5-1.4 Calcium 9.2 mg/dL 8.5-10.2 Total Protein 7.2 g/dL 6.0-8.0 Albumin 4.5 g/dL 3.6-4.9 Globulin 2.7 g/dL 2.0-3.5 A/G Ratio 1.7 Ratio 1.0-2.2 Total Bilirubin 0.5 mg/dL 0.1-1.3 Alkaline Phosphatase 63 U/L 24-140 Alt 24 U/L 3-42 Ast 19 U/L 8-42 Anion Gap 12 mmol/L 6-14 Kate Egfr >60 >60 73 Non Kate Egfr >60 >60 74 Laboratory test finding 02/13/2015 [facility] TSH 1.09 uIU/mL 0.35-4.94 CBC With Auto Diff 02/13/2015 [facility] WBC 4.8 K/uL 4.1-11.0 RBC 4.56 M/uL 4.00-5.40 Hemoglobin 13.7 gm/dL 12.0-16.0 Hematocrit 40.7 % 36.0-47.0 MCV 89.3 fL 80.0-97.0 MCH 30.0 pg 27.0-32.0 MCHC 33.6 g/dL 32.0-36.0 RDW 13.1 % 11.5-14.5 PLT Count 226 K/ul 140-400 Neutrophil 53.4 % 35.0-75.0 Lymphocyte 34.2 % 16.0-52.0 Monocyte 5.7 % 2.0-10.0 Eosinophil 5.7 % High 0.0-5.0 Basophil 1.0 % 0.0-4.0 Abs Neutrophils 2.6 K/uL 2.1-8.0 Abs Lymphocytes 1.7 K/uL 0.8-5.5 Abmon 0.3 K/uL 0.1-1.0 Abs Eosinophils 0.3 K/uL 0.0-0.5 Abs Basophils 0.0 K/uL 0.0-0.3 Laboratory test finding 08/28/2014 N2N/CCD Import Alt 23.0 U/L 9.0-52.0 Ast 19.0 U/L 14.0-36.0 Lipid Panel 08/28/2014 N2N/CCD Import Chol/HDL Ratio 3.6 ratio Cholesterol 163.0 mg/dL 50.0-199.0 HDL 45.0 mg/dL 29.0-86.0 LDL, Calculated 95.8 mg/dL 20.0-129.0 Triglycerides 111.0 mg/dL 30.0-249.0 vLDL 22.2 ng/dL Laboratory test finding 06/06/2014 N2N/CCD Import % Baso. 1.7 % 0.0-2.0 % Eos. 3.4 % 0.0-4.0 % Lymph 41 % 20-44 % Alcorn 5.8 % 2.0-10.0 % Deonna 49 % Low 50-70 Absolute Baso. 0.1 K/ul 0.0-0.3 Absolute Eos. 0.2 K/ul 0.0-0.5 Absolute Lymph. 1.9 K/ul 0.8-4.8 Absolute Alcorn. 0.3 K/ul 0.1-1.0 Absolute Deonna. 2.26 K/ul 2.05-7.63 BUN 10.0 mg/dL 7.0-18.0 BUN/Creat Ratio 12.5 ratio 12.0-20.0 Calcium 9.3 mg/dL 8.7-10.5 Chloride 105.0 mmol/L 98.0-107.0 Co2 31.0 mmol/L High 22.0-30.0 Creatinine-Serum 0.8 mg/dL 0.7-1.2 Glucose 102.0 mg/dL 75.0-110.0 HCT 38.0 % 37.0-51.0 HGB 12.5 Gm/dl 12.0-16.0 MCH 29.2 pg 26.0-32.0 MCHC 33.0 g/dL 31.0-36.0 MCV 88.4 Fl 80.0-97.0 MPV 7.2 fL 6.0-10.0 PLT 272 K/ul 140-440 Potasium 4.3 mmol/L 3.6-5.0 RBC 4.3 M/ul 4.2-6.3 RDW 11.9 % 11.5-14.5 Sodium 142.0 mmil/L 137.0-145.0 WBC 4.7 K/ul 4.1-10.9 eGFR 76.5 Laboratory test 06/06/2014 N2N/CCD Import Lipase,Serum 178 U/L 73-393 75 finding Lipid Panel 06/06/2014 N2N/CCD Import Chol/HDL Ratio 4.9 ratio Cholesterol 132.0 mg/dL 50.0-199.0 HDL 27.0 mg/dL Low 29.0-86.0 LDL, Calculated 80.6 mg/dL 20.0-129.0 Triglycerides 122.0 mg/dL 30.0-249.0 vLDL 24.4 ng/dL Hepatic Function Panel LFT 06/06/2014 N2N/CCD Import Albumin 4.1 g/dL 3.5-5.0 Alk. Phos. 106.0 U/L 30.0-126.0 Alt 97.0 U/L High 9.0-52.0 Ast 19.0 U/L 14.0-36.0 Total Bilirubin 0.4 mg/dL 0.2-1.3 Total Protein 7.2 g/dL 6.3-8.2 Lipid Panel 03/05/2014 N2N/CCD Import Chol/HDL Ratio 5.0 ratio Cholesterol 194.0 mg/dL 50.0-199.0 HDL 39.0 mg/dL 29.0-86.0 LDL, Calculated 134.8 mg/dL High 20.0-129.0 Triglycerides 101.0 mg/dL 30.0-249.0 vLDL 20.2 ng/dL Laboratory test finding 03/05/2014 N2N/CCD Import % A1c 6.0 % 4.1-6.5 % Baso. 5.4 % High 0.0-2.0 % Eos. 4.5 % High 0.0-4.0 % Lymph 29 % 20-44 % Alcorn 14.5 % High 2.0-10.0 % Deonna 46 % Low 50-70 Absolute Baso. 0.2 K/ul 0.0-0.3 Absolute Eos. 0.2 K/ul 0.0-0.5 Absolute Lymph. 1.2 K/ul 0.8-4.8 Absolute Alcorn. 0.6 K/ul 0.1-1.0 Absolute Deonna. 1.95 K/ul Low 2.05-7.63 Alt 23.0 U/L 9.0-52.0 Ast 16.0 U/L 14.0-36.0 BUN 14.0 mg/dL 7.0-18.0 BUN/Creat Ratio 17.5 ratio 12.0-20.0 Calcium 9.2 mg/dL 8.7-10.5 Chloride 105.0 mmol/L 98.0-107.0 Co2 27.0 mmol/L 22.0-30.0 Creatinine-Serum 0.8 mg/dL 0.7-1.2 Glucose 117.0 mg/dL High 75.0-110.0 HCT 37.5 % 37.0-51.0 HGB 12.4 Gm/dl 12.0-16.0 MCH 29.1 pg 26.0-32.0 MCHC 33.2 g/dL 31.0-36.0 MCV 87.7 Fl 80.0-97.0 MPV 7.0 fL 6.0-10.0 PLT 247 K/ul 140-440 Potasium 4.3 mmol/L 3.6-5.0 RBC 4.3 M/ul 4.2-6.3 RDW 12.4 % 11.5-14.5 Sodium 142.0 mmil/L 137.0-145.0 TSH 1.14 uIU/ml 0.50-6.00 WBC 4.2 K/ul 4.1-10.9 eGFR 76.8 Hepatic Function Panel LFT 02/20/2014 N2N/CCD Import Albumin 4.2 g/dL 3.5-5.0 Alk. Phos. 66.0 U/L 30.0-126.0 Alt 19.0 U/L 9.0-52.0 Ast 14.0 U/L 14.0-36.0 Total Bilirubin 0.4 mg/dL 0.2-1.3 Total Protein 7.3 g/dL 6.3-8.2 Laboratory test finding 02/20/2014 N2N/CCD Import % Baso. 1.0 % 0.0-2.0 % Eos. 1.1 % 0.0-4.0 % Lymph 26 % 20-44 % Alcorn 3.9 % 2.0-10.0 % Deonna 68 % 50-70 Absolute Baso. 0.1 K/ul 0.0-0.3 Absolute Eos. 0.1 K/ul 0.0-0.5 Absolute Lymph. 2.0 K/ul 0.8-4.8 Absolute Alcorn. 0.3 K/ul 0.1-1.0 Absolute Deonna. 5.39 K/ul 2.05-7.63 BUN 17.0 mg/dL 7.0-18.0 BUN/Creat Ratio 21.3 ratio High 12.0-20.0 Calcium 9.1 mg/dL 8.7-10.5 Chloride 103.0 mmol/L 98.0-107.0 Co2 27.0 mmol/L 22.0-30.0 Creatinine-Serum 0.8 mg/dL 0.7-1.2 Glucose 138.0 mg/dL High 75.0-110.0 HCT 39.9 % 37.0-51.0 HGB 13.6 Gm/dl 12.0-16.0 MCH 29.8 pg 26.0-32.0 MCHC 34.1 g/dL 31.0-36.0 MCV 87.5 Fl 80.0-97.0 MPV 7.0 fL 6.0-10.0 PLT 255 K/ul 140-440 Potasium 4.1 mmol/L 3.6-5.0 RBC 4.6 M/ul 4.2-6.3 RDW 12.0 % 11.5-14.5 Sodium 139.0 mmil/L 137.0-145.0 WBC 7.9 K/ul 4.1-10.9 eGFR 76.8 Lipid Panel 09/18/2013 N2N/CCD Import Chol/HDL Ratio 5.1 ratio Cholesterol 205.0 mg/dL High 50.0-199.0 HDL 40.0 mg/dL 29.0-86.0 LDL, Calculated 141.2 mg/dL High 20.0-129.0 Triglycerides 119.0 mg/dL 30.0-249.0 vLDL 23.8 ng/dL Laboratory test finding 09/18/2013 N2N/CCD Import % A1c 6.0 % 4.1-6.5 % Baso. 1.5 % 0.0-2.0 % Eos. 6.3 % High 0.0-4.0 % Lymph 43 % 20-44 % Alcorn 5.7 % 2.0-10.0 % Deonna 44 % Low 50-70 Absolute Baso. 0.1 K/ul 0.0-0.3 Absolute Eos. 0.3 K/ul 0.0-0.5 Absolute Lymph. 1.8 K/ul 0.8-4.8 Absolute Alcorn. 0.2 K/ul 0.1-1.0 Absolute Deonna. 1.88 K/ul Low 2.05-7.63 Alt 20.0 U/L 9.0-52.0 Ast 13.0 U/L Low 14.0-36.0 BUN 18.0 mg/dL 7.0-18.0 BUN/Creat Ratio 22.5 ratio High 12.0-20.0 Calcium 9.7 mg/dL 8.7-10.5 Chloride 105.0 mmol/L 98.0-107.0 Co2 26.0 mmol/L 22.0-30.0 Creatinine-Serum 0.8 mg/dL 0.7-1.2 Glucose 107.0 mg/dL 75.0-110.0 HCT 40.2 % 37.0-51.0 HGB 13.2 Gm/dl 12.0-16.0 MCH 30.4 pg 26.0-32.0 MCHC 32.9 g/dL 31.0-36.0 MCV 92.2 Fl 80.0-97.0 MPV 7.2 fL 6.0-10.0 PLT 219 K/ul 140-440 Potasium 4.3 mmol/L 3.6-5.0 RBC 4.4 M/ul 4.2-6.3 RDW 12.4 % 11.5-14.5 Sodium 140.0 mmil/L 137.0-145.0 WBC 4.3 K/ul 4.1-10.9 eGFR 76.8 Lipid Panel 04/03/2013 N2N/CCD Import Chol/HDL Ratio 5.5 ratio Cholesterol 183.0 mg/dL 50.0-199.0 HDL 33.0 mg/dL 29.0-86.0 LDL, Calculated 127.8 mg/dL 20.0-129.0 Triglycerides 111.0 mg/dL 30.0-249.0 vLDL 22.2 ng/dL Laboratory test finding 04/03/2013 N2N/CCD Import % A1c 6.0 % 4.1-6.5 Alt 25.0 U/L 9.0-52.0 Ast 17.0 U/L 14.0-36.0 BUN 19.0 mg/dL High 7.0-18.0 BUN/Creat Ratio 21.1 ratio High 12.0-20.0 Calcium 9.5 mg/dL 8.7-10.5 Chloride 105.0 mmol/L 98.0-107.0 Co2 24.0 mmol/L 22.0-30.0 Creatinine-Serum 0.9 mg/dL 0.7-1.2 Glucose 101.0 mg/dL 75.0-110.0 Potasium 4.2 mmol/L 3.6-5.0 Sodium 141.0 mmil/L 137.0-145.0 eGFR 67.2 1 3 mos 2 Updated reference range on new analyzer 3 Updated reference range on new analyzer 4 Concerning GFR Guidelines: Normal function or mild renal disease, if clinically at risk: >/=60 mL/min Moderately decreased: 30-59 Severely decreased: 15-29 Renal failure: <15 Glomerular Filtration Rate (GFR) is estimated based on the MDRD equation, which assumes a steady state for creatinine as recommended by the National Kidney Disease Education Program in conjunction with the National Institutes of Health and the National Kidney Foundation. Clinical conditions in which it may be necessary to measure GFR by using clearance methods include extremes of age and body size, severe malnutrition or obesity, diseases of skeletal muscle, paraplegia or quadriplegia, vegetarian diet, rapidly changing kidney function, and calculation of the dose of potentially toxic drugs that are excreted by the kidneys. 5 Concerning GFR Guidelines for Americans: Normal function or mild renal disease, if clinically at risk: >/=60 mL/min Moderately decreased: 30-59 Severely decreased: 15-29 Renal failure: <15 6 Updated Reference Range 7 Per NCEP ATP III Guidelines: Results lower than 40 mg/dL are suggestive of increased risk for coronary artery disease. Results > or=to 60 mg/dL are considered a negative risk factor. 8 Per NCEP ATP III Guidelines: Normal Population <130 Patients with medical conditions: CHD/DM Optimal: <100 Borderline high: 130-159 High: 160-189 Very high: >189 9 Updated reference range on new analyzer 10 Updated reference range on new analyzer 11 Concerning GFR Guidelines: Normal function or mild renal disease, if clinically at risk: >/=60 mL/min Moderately decreased: 30-59 Severely decreased: 15-29 Renal failure: <15 Glomerular Filtration Rate (GFR) is estimated based on the MDRD equation, which assumes a steady state for creatinine as recommended by the National Kidney Disease Education Program in conjunction with the National Institutes of Health and the National Kidney Foundation. Clinical conditions in which it may be necessary to measure GFR by using clearance methods include extremes of age and body size, severe malnutrition or obesity, diseases of skeletal muscle, paraplegia or quadriplegia, vegetarian diet, rapidly changing kidney function, and calculation of the dose of potentially toxic drugs that are excreted by the kidneys. 12 Concerning GFR Guidelines for Americans: Normal function or mild renal disease, if clinically at risk: >/=60 mL/min Moderately decreased: 30-59 Severely decreased: 15-29 Renal failure: <15 13 Updated Reference Range 14 3mos 15 Updated reference range on new analyzer 16 Updated reference range on new analyzer 17 Concerning GFR Guidelines: Normal function or mild renal disease, if clinically at risk: >/=60 mL/min Moderately decreased: 30-59 Severely decreased: 15-29 Renal failure: <15 Glomerular Filtration Rate (GFR) is estimated based on the MDRD equation, which assumes a steady state for creatinine as recommended by the National Kidney Disease Education Program in conjunction with the National Institutes of Health and the National Kidney Foundation. Clinical conditions in which it may be necessary to measure GFR by using clearance methods include extremes of age and body size, severe malnutrition or obesity, diseases of skeletal muscle, paraplegia or quadriplegia, vegetarian diet, rapidly changing kidney function, and calculation of the dose of potentially toxic drugs that are excreted by the kidneys. 18 Concerning GFR Guidelines for Americans: Normal function or mild renal disease, if clinically at risk: >/=60 mL/min Moderately decreased: 30-59 Severely decreased: 15-29 Renal failure: <15 19 Updated Reference Range 20 Per NCEP ATP III Guidelines: Results lower than 40 mg/dL are suggestive of increased risk for coronary artery disease. Results > or=to 60 mg/dL are considered a negative risk factor. 21 Per NCEP ATP III Guidelines: Normal Population <130 Patients with medical conditions: CHD/DM Optimal: <100 Borderline high: 130-159 High: 160-189 Very high: >189 22 I10 ESSENTIAL PRIMARY HYPERTENSION R06.83 SNORING 23 3 mos 24 Updated reference range on new analyzer 25 Updated reference range on new analyzer 26 Concerning GFR Guidelines for Americans: Normal function or mild renal disease, if clinically at risk: >/=60 mL/min Moderately decreased: 30-59 Severely decreased: 15-29 Renal failure: <15 27 Concerning GFR Guidelines: Normal function or mild renal disease, if clinically at risk: >/=60 mL/min Moderately decreased: 30-59 Severely decreased: 15-29 Renal failure: <15 Glomerular Filtration Rate (GFR) is estimated based on the MDRD equation, which assumes a steady state for creatinine as recommended by the National Kidney Disease Education Program in conjunction with the National Institutes of Health and the National Kidney Foundation. Clinical conditions in which it may be necessary to measure GFR by using clearance methods include extremes of age and body size, severe malnutrition or obesity, diseases of skeletal muscle, paraplegia or quadriplegia, vegetarian diet, rapidly changing kidney function, and calculation of the dose of potentially toxic drugs that are excreted by the kidneys. 28 Updated Reference Range 29 Updated reference range on new analyzer 30 Updated reference range on new analyzer 31 Concerning GFR Guidelines: Normal function or mild renal disease, if clinically at risk: >/=60 mL/min Moderately decreased: 30-59 Severely decreased: 15-29 Renal failure: <15 Glomerular Filtration Rate (GFR) is estimated based on the MDRD equation, which assumes a steady state for creatinine as recommended by the National Kidney Disease Education Program in conjunction with the National Institutes of Health and the National Kidney Foundation. Clinical conditions in which it may be necessary to measure GFR by using clearance methods include extremes of age and body size, severe malnutrition or obesity, diseases of skeletal muscle, paraplegia or quadriplegia, vegetarian diet, rapidly changing kidney function, and calculation of the dose of potentially toxic drugs that are excreted by the kidneys. 32 Concerning GFR Guidelines for Americans: Normal function or mild renal disease, if clinically at risk: >/=60 mL/min Moderately decreased: 30-59 Severely decreased: 15-29 Renal failure: <15 33 Updated reference range on new analyzer 34 Per NCEP ATP III Guidelines: Results lower than 40 mg/dL are suggestive of increased risk for coronary artery disease. Results > or=to 60 mg/dL are considered a negative risk factor. 35 Per NCEP ATP III Guidelines: Normal Population <130 Patients with medical conditions: CHD/DM Optimal: <100 Borderline high: 130-159 High: 160-189 Very high: >189 36 0.0 - 0.045 ng/mL: Normal 0.046 - 0.5 ng/mL: Suggestive 0.6 - 1.5 ng/mL: Consistent 37 Updated reference range on new analyzer 38 Updated reference range on new analyzer 39 Concerning GFR Guidelines: Normal function or mild renal disease, if clinically at risk: >/=60 mL/min Moderately decreased: 30-59 Severely decreased: 15-29 Renal failure: <15 Glomerular Filtration Rate (GFR) is estimated based on the MDRD equation, which assumes a steady state for creatinine as recommended by the National Kidney Disease Education Program in conjunction with the National Institutes of Health and the National Kidney Foundation. Clinical conditions in which it may be necessary to measure GFR by using clearance methods include extremes of age and body size, severe malnutrition or obesity, diseases of skeletal muscle, paraplegia or quadriplegia, vegetarian diet, rapidly changing kidney function, and calculation of the dose of potentially toxic drugs that are excreted by the kidneys. 40 Concerning GFR Guidelines for Americans: Normal function or mild renal disease, if clinically at risk: >/=60 mL/min Moderately decreased: 30-59 Severely decreased: 15-29 Renal failure: <15 41 Updated reference range on new analyzer 42 Updated reference range on new analyzer 43 Updated reference range on new analyzer 44 Concerning GFR Guidelines for Americans: Normal function or mild renal disease, if clinically at risk: >/=60 mL/min Moderately decreased: 30-59 Severely decreased: 15-29 Renal failure: <15 45 Concerning GFR Guidelines: Normal function or mild renal disease, if clinically at risk: >/=60 mL/min Moderately decreased: 30-59 Severely decreased: 15-29 Renal failure: <15 Glomerular Filtration Rate (GFR) is estimated based on the MDRD equation, which assumes a steady state for creatinine as recommended by the National Kidney Disease Education Program in conjunction with the National Institutes of Health and the National Kidney Foundation. Clinical conditions in which it may be necessary to measure GFR by using clearance methods include extremes of age and body size, severe malnutrition or obesity, diseases of skeletal muscle, paraplegia or quadriplegia, vegetarian diet, rapidly changing kidney function, and calculation of the dose of potentially toxic drugs that are excreted by the kidneys. 46 Updated reference range on new analyzer 47 6 mos 48 Per NCEP ATP III Guidelines: Results lower than 40 mg/dL are suggestive of increased risk for coronary artery disease. Results > or=to 60 mg/dL are considered a negative risk factor. 49 Per NCEP ATP III Guidelines: Normal Population <130 Patients with medical conditions: CHD/DM Optimal: <100 Borderline high: 130-159 High: 160-189 Very high: >189 50 Updated reference range on new analyzer 51 5.3 No visible hemolysis. 52 Updated reference range on new analyzer 53 Concerning GFR Guidelines: Normal function or mild renal disease, if clinically at risk: >/=60 mL/min Moderately decreased: 30-59 Severely decreased: 15-29 Renal failure: <15 Glomerular Filtration Rate (GFR) is estimated based on the MDRD equation, which assumes a steady state for creatinine as recommended by the National Kidney Disease Education Program in conjunction with the National Institutes of Health and the National Kidney Foundation. Clinical conditions in which it may be necessary to measure GFR by using clearance methods include extremes of age and body size, severe malnutrition or obesity, diseases of skeletal muscle, paraplegia or quadriplegia, vegetarian diet, rapidly changing kidney function, and calculation of the dose of potentially toxic drugs that are excreted by the kidneys. 54 Concerning GFR Guidelines for Americans: Normal function or mild renal disease, if clinically at risk: >/=60 mL/min Moderately decreased: 30-59 Severely decreased: 15-29 Renal failure: <15 55 Updated reference range on new analyzer 56 3 mos 57 Per NCEP ATP III Guidelines: Results lower than 40 mg/dL are suggestive of increased risk for coronary artery disease. Results > or=to 60 mg/dL are considered a negative risk factor. 58 Per NCEP ATP III Guidelines: Normal Population <130 Patients with medical conditions: CHD/DM Optimal: <100 Borderline high: 130-159 High: 160-189 Very high: >189 59 Concerning GFR Guidelines: Normal function or mild renal disease, if clinically at risk: >/=60 mL/min Moderately decreased: 30-59 Severely decreased: 15-29 Renal failure: <15 Glomerular Filtration Rate (GFR) is estimated based on the MDRD equation, which assumes a steady state for creatinine as recommended by the National Kidney Disease Education Program in conjunction with the National Institutes of Health and the National Kidney Foundation. Clinical conditions in which it may be necessary to measure GFR by using clearance methods include extremes of age and body size, severe malnutrition or obesity, diseases of skeletal muscle, paraplegia or quadriplegia, vegetarian diet, rapidly changing kidney function, and calculation of the dose of potentially toxic drugs that are excreted by the kidneys. 60 Concerning GFR Guidelines for Americans: Normal function or mild renal disease, if clinically at risk: >/=60 mL/min Moderately decreased: 30-59 Severely decreased: 15-29 Renal failure: <15 61 3 mos Fastin hours 3 mos Fastin hours 62 Concerning GFR Guidelines: Normal function or mild renal disease, if clinically at risk: >/=60 mL/min Moderately decreased: 30-59 Severely decreased: 15-29 Renal failure: <15 Glomerular Filtration Rate (GFR) is estimated based on the MDRD equation, which assumes a steady state for creatinine as recommended by the National Kidney Disease Education Program in conjunction with the National Institutes of Health and the National Kidney Foundation. Clinical conditions in which it may be necessary to measure GFR by using clearance methods include extremes of age and body size, severe malnutrition or obesity, diseases of skeletal muscle, paraplegia or quadriplegia, vegetarian diet, rapidly changing kidney function, and calculation of the dose of potentially toxic drugs that are excreted by the kidneys. 63 Concerning GFR Guidelines for Americans: Normal function or mild renal disease, if clinically at risk: >/=60 mL/min Moderately decreased: 30-59 Severely decreased: 15-29 Renal failure: <15 64 6 mos 65 Per NCEP ATP III Guidelines: Results lower than 40 mg/dL are suggestive of increased risk for coronary artery disease. Results > or=to 60 mg/dL are considered a negative risk factor. 66 Per NCEP ATP III Guidelines: Normal Population <130 Patients with medical conditions: CHD/DM Optimal: <100 Borderline high: 130-159 High: 160-189 Very high: >189 67 Concerning GFR Guidelines: Normal function or mild renal disease, if clinically at risk: >/=60 mL/min Moderately decreased: 30-59 Severely decreased: 15-29 Renal failure: <15 Glomerular Filtration Rate (GFR) is estimated based on the MDRD equation, which assumes a steady state for creatinine as recommended by the National Kidney Disease Education Program in conjunction with the National Institutes of Health and the National Kidney Foundation. Clinical conditions in which it may be necessary to measure GFR by using clearance methods include extremes of age and body size, severe malnutrition or obesity, diseases of skeletal muscle, paraplegia or quadriplegia, vegetarian diet, rapidly changing kidney function, and calculation of the dose of potentially toxic drugs that are excreted by the kidneys. 68 Concerning GFR Guidelines for Americans: Normal function or mild renal disease, if clinically at risk: >/=60 mL/min Moderately decreased: 30-59 Severely decreased: 15-29 Renal failure: <15 69 Per NCEP ATP III Guidelines: Results lower than 40 mg/dL are suggestive of increased risk for coronary artery disease. Results > or=to 60 mg/dL are considered a negative risk factor. 70 Per NCEP ATP III Guidelines: Normal Population <130 Patients with medical conditions: CHD/DM Optimal: <100 Borderline high: 130-159 High: 160-189 Very high: >189 71 Per NCEP ATP III Guidelines: Results lower than 40 mg/dL are suggestive of increased risk for coronary artery disease. Results > or=to 60 mg/dL are considered a negative risk factor. 72 Per NCEP ATP III Guidelines: Normal Population <130 Patients with medical conditions: CHD/DM Optimal: <100 Borderline high: 130-159 High: 160-189 Very high: >189 73 Concerning GFR Guidelines for Americans: Normal function or mild renal disease, if clinically at risk: >/=60 mL/min Moderately decreased: 30-59 Severely decreased: 15-29 Renal failure: <15 74 Concerning GFR Guidelines: Normal function or mild renal disease, if clinically at risk: >/=60 mL/min Moderately decreased: 30-59 Severely decreased: 15-29 Renal failure: <15 Glomerular Filtration Rate (GFR) is estimated based on the MDRD equation, which assumes a steady state for creatinine as recommended by the National Kidney Disease Education Program in conjunction with the National Institutes of Health and the National Kidney Foundation. Clinical conditions in which it may be necessary to measure GFR by using clearance methods include extremes of age and body size, severe malnutrition or obesity, diseases of skeletal muscle, paraplegia or quadriplegia, vegetarian diet, rapidly changing kidney function, and calculation of the dose of potentially toxic drugs that are excreted by the kidneys. 75 FASTING Procedures Date Code Description Status 06/29/2018 [id number] Mammogram Completed 06/18/2017 [id number] Rhythm ECG W/Interpretation & Report Completed 04/06/2017 34977 Electrocardiogram Complete Completed 07/16/2016 18265 Bone Density Study (Dexa) Axial Skeleton Completed (Hips,Pelvis,Spine) 07/16/2016 [id number] Bone Mineral Density Test Completed 05/13/2016 21806 Destruction Benign Lesions Other Than Skin Tags Up To Completed 14 Lesions 06/06/2015 [id number] Mammogram Completed 12/27/2014 55059 Echography Retroperitoneal Limited Completed 12/13/2014 03864 Electrocardiogram Complete Completed 09/13/2008 [id number] Colonoscopy Completed Encounters Type Date Location Provider Dx Diagnosis Office Visit 05/23/2018 [facility] Guadalupe Santa MD Z71.9 Counseling, 1:15p unspecified J30.9 Allergic rhinitis, unspecified L40.9 Psoriasis, unspecified I10 Essential (primary) hypertension R91.1 Solitary pulmonary nodule E11.9 Type 2 diabetes mellitus without complications Z12.31 Encntr screen mammogram for malignant neoplasm of breast 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 K76.0 Fatty (change of) liver, not elsewhere classified 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 E78.2 Mixed hyperlipidemia Z68.32 Body mass index (BMI) 32.0-32.9, adult Office Visit 04/01/2018 10:30a [facility] Guadalupe Santa MD E11.9 Type 2 diabetes mellitus without complications Z68.35 Body mass index (BMI) 35.0-35.9, adult Office Visit 02/18/2018 1:00p [facility] Guadalupe Santa MD E78.2 Mixed hyperlipidemia J30.9 Allergic rhinitis, unspecified L40.9 Psoriasis, unspecified I10 Essential (primary) hypertension R91.1 Solitary pulmonary nodule F17.211 Nicotine dependence, cigarettes, in remission E11.9 Type 2 diabetes mellitus without complications M67.442 Ganglion, LEFT hand Z68.35 Body mass index (BMI) 35.0-35.9, adult Z23 Encounter for immunization Office Visit 11/22/2017 9:45a [facility] Guadalupe Santa MD Z00.00 Encntr for general adult medical exam w/o abnormal findings E78.2 Mixed hyperlipidemia J30.9 Allergic rhinitis, unspecified L40.9 Psoriasis, unspecified I10 Essential (primary) hypertension R73.01 Impaired fasting glucose R91.1 Solitary pulmonary nodule Z68.35 Body mass index (BMI) 35.0-35.9, adult E66.01 Morbid (severe) obesity due to excess calories Office Visit 09/23/2017 10:15a [facility] Guadalupe Santa MD I10 Essential ( primary) hypertension Office Visit 09/01/2017 8:45a [facility] Guadalupe Santa MD I10 Essential ( primary) hypertension I10 Essential (primary) hypertension E78.5 Hyperlipidemia, unspecified R91.1 Solitary pulmonary nodule K21.9 Gastro-esophageal reflux disease without esophagitis Office Visit 08/10/2017 1:30p [facility] Guadalupe Santa MD E78.2 Mixed hyperlipidemia J30.9 Allergic rhinitis, unspecified L40.9 Psoriasis, unspecified I10 Essential (primary) hypertension R73.01 Impaired fasting glucose R91.1 Solitary pulmonary nodule Office Visit 07/29/2017 1:00p [facility] Tea Murray PA R42 Dizziness and giddiness I10 Essential (primary) hypertension R00.2 Palpitations Office Visit 07/06/2017 9:45a [facility] Guadalupe Santa MD I10 Essential ( primary) hypertension Office Visit 06/18/2017 3:30p [facility] Guadalupe Santa MD I10 Essential ( primary) hypertension R07.9 Chest pain, unspecified Office Visit 06/11/2017 9:45a [facility] Guadalupe Santa MD I10 Essential ( primary) hypertension Office Visit 06/03/2017 1:45p [facility] Guadalupe Santa MD I10 Essential ( primary) hypertension Office Visit 05/28/2017 10:00a [facility] Guadalupe Santa MD I10 Essential ( primary) hypertension Office Visit 04/30/2017 8:45a [facility] Guadalupe Santa MD E78.2 Mixed hyperlipidemia J30.9 Allergic rhinitis, unspecified L40.9 Psoriasis, unspecified I10 Essential (primary) hypertension R73.01 Impaired fasting glucose R91.1 Solitary pulmonary nodule Office Visit 04/06/2017 2:45p [facility] Guadalupe Santa MD Z01.818 Encounter for other preprocedural examination M21.611 Bunion of RIGHT foot E78.2 Mixed hyperlipidemia J30.9 Allergic rhinitis, unspecified L40.9 Psoriasis, unspecified I10 Essential (primary) hypertension R73.01 Impaired fasting glucose R91.1 Solitary pulmonary nodule Office Visit 01/26/2017 9:30a [facility] Guadalupe Santa MD Z00.00 Encntr for general adult medical exam w/o abnormal findings E78.2 Mixed hyperlipidemia J30.9 Allergic rhinitis, unspecified L40.9 Psoriasis, unspecified I10 Essential (primary) hypertension F17.211 Nicotine dependence, cigarettes, in remission B35.3 Tinea pedis M20.5x1 Other deformities of toe(s) (acquired), RIGHT foot Z11.59 Encounter for screening for other viral diseases Z68.34 Body mass index (BMI) 34.0-34.9, adult Z87.891 Personal history of nicotine dependence Office Visit 07/31/2016 1:00p [facility] Guadalupe Santa MD Z00.00 Encntr for general adult medical exam w/o abnormal findings E78.2 Mixed hyperlipidemia J30.9 Allergic rhinitis, unspecified L40.9 Psoriasis, unspecified I10 Essential (primary) hypertension R73.01 Impaired fasting glucose Office Visit 04/24/2016 9:15a [facility] Guadalupe Santa MD E78.2 Mixed hyperlipidemia J30.9 Allergic rhinitis, unspecified L40.9 Psoriasis, unspecified I10 Essential (primary) hypertension R73.01 Impaired fasting glucose D48.5 Neoplasm of uncertain behavior of skin Office Visit 01/21/2016 8:00a [facility] Guadalupe Santa MD Z00.00 Encntr for general adult medical exam w/o abnormal findings E78.2 Mixed hyperlipidemia I10 Essential (primary) hypertension L40.9 Psoriasis, unspecified K21.9 Gastro-esophageal reflux disease without esophagitis J30.9 Allergic rhinitis, unspecified R73.01 Impaired fasting glucose Office Visit 08/06/2015 9:00a [facility] Guadalupe Santa MD E78.2 Mixed hyperlipidemia J30.9 Allergic rhinitis, unspecified I10 Essential (primary) hypertension L40.9 Psoriasis, unspecified Office Visit 02/19/2015 9:15a [facility] Guadalupe Santa MD 272.2 Hyperlipidemia Mixed 477.9 Rhinitis Allergic Cause Unspec 696.1 Psoriasis Other 401.1 Hypertension Benign 530.81 Esophageal Reflux V85.32 BMI Body Mass Index 32.0-32.9 Adult Office Visit 12/13/2014 4:00p [facility] Guadalupe Santa MD V70.0 Exam (Adult) General Medical Routine AT Health Care Facility Office Visit 12/07/2000 3:30p Luh Mckeon MD Office Visit 09/20/2000 3:50p Luh Mckeon 296.22 Depressive Disorder MD Lee Major Single Episode Moderate Office Visit 06/14/2000 4:00p Luh Mckeon 783.2 Weight Loss Abnormal MD Lee Plan of Treatment Future Appointment(s):11/18/2018 8:40 am - Schedule, Laboratory at [facility]2018 1:00 pm - Guadalupe Santa MD at [facility]08/29/2018 3:30 pm - [employer] [facility] at [facility] ([facility])08/22/2018 - Guadalupe Santa MDE78.2 Mixed hyperlipidemiaNew Labs:Lipid, Ordered: 08/22/18Comments:doing well on current medication - continue this. on statin - liver enzymes are normal. continue current medication to minimize cardiovascular riskFollow up:november for MEDICARE WELLNESS EXAM and routine follow-up with fasting labs kpifdQ22.9 Allergic rhinitis, unspecifiedComments:takes an gpib-dph-ffofyac allergy pill and this works wellL40.9 Psoriasis, unspecifiedComments:worsening in the cold winter weather - recommend greasy or oily emollients .I10 Essential (primary) hypertensionComments:at goal on current medication - continue this. However, optimum control is blood pressure of less than 120/80. do not add salt to your food. encourage regular exercise and healthy diet to improve blood pressure.R91.1 Solitary pulmonary noduleNew Xrays:CT, Thorax, W/O Contrast, Ordered: 08/22/18Comments:found on low dose lung cancer screen last year and found to be stable on her [address] follow-up. It was recommended to resume low dose CT in 01/2018, but she no longer meets criteria for this. recommend repeating a regular CT scan in about 6 months to ensure stability - this is due nowK76.0 Fatty (change of) liver, not elsewhere classifiedNew Labs:Hepatic Panel (LFT), Ordered: 08/22/18Comments:fatty liver seen on CT scan - weight loss will probably help this.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New Xrays:CT Abdomen, W/O Contrast, Ordered: Comments:reviewed her ct scan - this shows an adrenal gland lesion that appears benign but is slightly larger than when first seen in 2010. 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 goal for a person over age 65 is between 23 and 30. You are overweight. Work on healthy lifestyle, with regular exercise (20 min daily will help) and eat a healthy diet. formal diet plans work best.
[2018-09-07 12:16] VITALS: BP 148/60
[2018-09-07] MEDS ORDERED: Ibuprofen TAB* 400 MG PO ONE (12:20)
--- NOTE | 2018-09-07 12:23 | UC ---
Hand/Wrist HPI - HPI Summary HPI Summary: patient was walking her dog, fell and landed on her extended wrist, pain and swelling of the distal radiaus noted. - History Of Current Complaint Chief Complaint: UCUpperExtremity Stated Complaint: RIGHT HAND INJURY Time Seen by Provider: 09/07/18 12:18 Hx Obtained From: Patient ?: No Onset/Duration: Sudden Onset, Lasting Hours Severity Currently: Severe Pain Intensity: 9 Character Of Pain: Spasmodic Aggravating Factor(s): Movement Alleviating Factor(s): Ice Associated Signs And Symptoms: Positive: Swelling - Allergies/Home Medications Allergies/Adverse Reactions: Allergies Allergy/AdvReac Type Severity Reaction Status Date / Time No Known Allergies Allergy Verified 07/14/18 09:24 PMH/Surg Hx/FS Hx/Imm Hx Previously Healthy: Yes - Surgical History Surgical History: Yes Surgery Procedure, Year, and Place: [place], [place] [facility] [place] 2010 [place]. 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 left wrist ganglion cyst removal march 2018 [place] [facility] [place] CARPAL TUNNEL - Family History Known Family History: Negative: Cardiac Disease, Hypertension - Social History Alcohol Use: None Substance Use Type: None Smoking Status (MU): Former Smoker Type: Cigarettes Amount Used/How Often: 1ppd for23 yrs When Did the Patient Quit Smoking/Using Tobacco: 2001 - Immunization History Most Recent Tetanus Shot: UNKNOWN Review of Systems All Other Systems Reviewed And Are Negative: Yes Constitutional: Positive: Negative Skin: Positive: Negative Eyes: Positive: Negative ENT: Positive: Negative Respiratory: Positive: Negative Cardiovascular: Positive: Negative Gastrointestinal: Positive: Negative Genitourinary: Positive: Negative Motor: Positive: Negative Neurovascular: Positive: Negative Musculoskeletal: Positive: Arthralgia, Decreased ROM, Edema, Myalgia Neurological: Positive: Negative Psychological: Positive: Negative Is Patient Immunocompromised?: No Physical Exam Triage Information Reviewed: Yes Appearance: Well-Appearing, Well-Nourished, Pain Distress Vital Signs: Initial Vital Signs Temp 98.5 F 09/07/18 12:10 Pulse 64 09/07/18 12:10 Resp 16 09/07/18 12:10 BP 148/60 09/07/18 12:10 Pulse Ox 100 09/07/18 12:10 Vital Signs Reviewed: Yes Eye Exam: Normal ENT Exam: Normal Dental Exam: Normal Neck exam: Normal Neck: Positive: Supple, Nontender, No Lymphadenopathy Respiratory Exam: Normal Respiratory: Positive: Chest non-tender, Lungs clear, Normal breath sounds Cardiovascular Exam: Normal Cardiovascular: Positive: RRR, No Murmur, Pulses Normal Abdominal Exam: Normal Abdomen Description: Positive: Nontender, No Organomegaly, Soft Musculoskeletal: Positive: Strength Limited @ - in right hand, ROM Limited @ - in wrist, Edema @ - over the distal radius Neurological Exam: Normal Psychological Exam: Normal Skin Exam: Normal Hand/Wrist Course/Dx - Course Course Of Treatment: hx obtained, exam performed ,meds reviewed, xray obtained, nmo fracture noted, marilyn wrap applied. educated on care for sprain - Differential Dx/Diagnosis Differential Diagnosis/HQI/PQRI: Fracture, Sprain, Strain Provider Diagnosis: Right wrist injury Discharge - Sign-Out/Discharge Documenting (check all that apply): Patient Departure All imaging exams completed and their final reports reviewed: Yes - Discharge Plan Condition: Stable Disposition: HOME Patient Education Materials: Wrist Injury (ED) Referrals: Guadalupe Santa MD [Primary Care Provider] - Additional Instructions: 1. use the marilyn wrap for compression and support 2. Tylenol for pain 3. follow up with your doctor, if not improving in the next week - Billing Disposition and Condition Condition: STABLE Disposition: Home - Attestation Statements Provider Attestation: Per institutional requirements, I have reviewed the chart, however, I was not consulted specifically or made aware of this patient by the midlevel provider. I did not personally evaluate, interact with , or disposition this patient.
== END 2018-09-07 13:03 | disposition home or self-care (01) ==
LOC: UCCORT 10:41
DX: S69.91XA Unspecified injury of right wrist, hand and finger(s), initial encounter (principal); W19.XXXA Unspecified fall, initial encounter; Y93.K1 Activity, walking an animal; Y92.9 Unspecified place or not applicable
CPT/HCPCS: 99213; A9270-GY; G0463

== ENCOUNTER 2019-07-05 12:14 | Emergency (ER) | payer MEDICARE, MEDICAID ==
--- OUTSIDE RECORDS SUMMARY | 2019-07-05 12:35 | XMS REPORT | Continuity of Care Document ---
:1950 External Reference #:[id number] Author Name Guadalupe Santa MD Address [address] [place] [id number] Care Team Providers Name Role Phone Ольга Gutierrez MD - Cardiovascular Care Team Information Business Transformation Analyst Disease [place] Mirza DR - Orthopaedic Care Team Information Business Transformation Analyst [phone] Surgery Joe Morris - Gastroenterology Care Team Information Business Transformation Analyst [phone] Guadalupe Santa MD - Family Medicine Care Team Information Business Transformation Analyst Problems Active Problems Provider Date Mixed hyperlipidemia Guadalupe Santa MD Onset: 03/12/2014 Allergic rhinitis Guadalupe Santa MD Onset: 03/12/2014 Psoriasis Guadalupe Santa MD Onset: 01/24/2010 Essential hypertension Guadalupe Santa MD Onset: 08/06/2015 Type 2 diabetes mellitus Guadalupe Santa MD Onset: 02/18/2018 Chronic nonalcoholic liver disease Guadalupe Santa MD Onset: 05/23/2018 Impaired fasting glycaemia Guadalupe Santa MD Onset: 08/22/2018 Social History Type Date Description Comments Sex Unknown Tobacco Use Start: 09/13/68 End: Former Cigarette Smoker 32 pack year history - 08/13/02 no longer meets criteria for low dose lung cancer screening Smoking Status Reviewed: 06/15/19 Former Cigarette Smoker 32 pack year history - no longer meets criteria for low dose lung cancer screening ETOH Use Denies alcohol use Tobacco Use Start: Unknown End: Patient is a former Unknown smoker Allergies, Adverse Reactions, Alerts Description No Known Drug Allergies Medications Active Medications SIG Qnty Indications Ordering Provider Date Aspirin 81 1 by mouth every otc E11.9 Guadalupe Santa, 06/15/2019 81mg Tablets day MD ALDRIDGE Cetirizine HCL 1 by mouth every 90tabs J30.2 Kiet Guadalupe, 04/26/2018 10mg day MD Tablets Amlodipine Besylate take 2 tablets 180tabs I10 Felicia Santady, 10/13/2017 by mouth once MD 2.5mg Tablets daily Simvastatin 1 tab by mouth 90tabs E78.2 Guadalupe Santa, 09/23/2017 20mg every day MD Tablets Bystolic take 1 tablet by 90tabs I10 Kiet Guadalupe, 09/01/2017 10mg Tablets mouth once daily MD Calcium Carbonate 1 PO qd Guadalupe Santa, 01/24/2010 MD 1500mg Tablets Losartan 1 by mouth every I10 Unknown Potassium/Hydrochloro day thiazide 50-12.5mg Tablets Multivitamin Adult one orally daily Unknown Extra Vitamin C Chewtabs History Medications Meloxicam 1 by mouth once 30tabs R07.89 Alex León, 03/23/2019 - 7.5mg daily with food 04/17/2019 Tablets Medications Administered in Office Medication SIG Qnty Indications Ordering Provider Date PPD Injection Unknown 07/14/2015 Immunizations CPT Code Status Date Vaccine Reaction Lot # [id number] Given 06/14/2019 Influenza Vaccine, Inactivated, KINNEYS Subunit, Adjuvanted, For Im Q2039 Given 06/15/2018 Flu Vaccine NOS 18114 Given 06/15/2018 Fluzone Highdose Age 65 And Over Preservative & Antibiotic Free 44431 Given 02/18/2018 Prevnar 13 Pneumococal Conjugate Pt tolerated well [id number] Vaccine Q2039 Given 06/16/2017 Flu Vaccine NOS Q2039 Given 06/30/2016 Flu Vaccine NOS 74739 Given 08/02/2015 Hepatitis B Vac Ped/Adolescent 3 Dose Schedule Q2039 Given 07/15/2015 Flu Vaccine NOS 09247 Given 02/12/2015 Hepatitis B Vac Ped/Adolescent 3 Dose Schedule 46854 Given 01/19/2015 Zoster (Zostavax) 15917 Given 01/01/2015 Hepatitis B Vac Ped/Adolescent 3 Dose Schedule 32070 Given 09/04/2014 Pneumococcal 23 Immunization Adult Or Immunosuppressed Patient 38066 Given 06/15/2014 Fluzone Highdose Age 65 And Over Preservative & Antibiotic Free 90526 Given 06/27/2013 Afluria Or Fluvirin Flu Vac Intramuscular 54455 Given 07/06/2011 Afluria Or Fluvirin Flu Vac VIS DATE 04/07/11 Intramuscular 11375 Given 03/30/2011 Tdap (Adacel) Ages 7 And Above Only 36246 Refused 05/23/2018 Afluria Or Fluvirin Flu Vac Intramuscular 51474 Refused 08/06/2015 Prevnar 13 Pneumococal Conjugate DECLINED PER TRIAGE. Vaccine Vital Signs Date Vital Result Comment 06/15/2019 1:00pm Weight 194.00 lb Heart Rate 76 /min BP Systolic 132 mmHg BP Diastolic 78 mmHg Respiratory Rate 18 /min Height 62.75 inches 5'2.75" O2 % BldC Oximetry 95 % Ra BMI (Body Mass Index) 34.6 kg/m2 04/17/2019 11:39am Weight 191.00 lb Heart Rate 60 /min BP Systolic 150 mmHg BP Diastolic 82 mmHg Respiratory Rate 17 /min Height 62.75 inches 5'2.75" BMI (Body Mass Index) 34.1 kg/m2 Results Test Date Facility Test Result H/L Range Note Lipid Treatment 06/07/2019 [facility] Cholesterol 145 mg/dL 50-199 1 Triglycerides 124 mg/dL 30-200 HDL 43 mg/dL 35-85 2 Chol/ HDL Ratio 3.4 ratio Low 3.7-5.6 VLDL 25 mg/dL 2-29 LDL (Calc) 78 mg/dL 20-99 3 Alt 19 U/L 3-42 Ast 15 U/L 8-42 CBC with Auto Diff-fcmg 06/07/2019 [facility] WBC 4.0 K/uL Low 4.1-11.0 RBC 4.31 M/uL 4.00-5.40 Hemoglobin 13.0 gm/dL 12.0-16.0 Hematocrit 38.6 % 36.0-47.0 MCV 89.5 fL 80.0-97.0 MCH 30.2 pg 27.0-32.0 MCHC 33.7 g/dL 32.0-36.0 RDW 12.8 % 11.5-14.5 PLT Count 201 K/ul 140-400 MPV 8.6 FL 7.1-10.7 Neutrophil 52.1 % 35.0-75.0 Lymphocyte 36.9 % 16.0-52.0 Monocyte 6.3 % 2.0-10.0 Eosinophil 3.8 % 0.0-5.0 Basophil 0.9 % 0.0-4.0 Abs Neutrophils 2.1 K/uL 2.1-8.0 Abs Lymphocytes 1.5 K/uL 0.8-5.5 Abs Monocytes 0.2 K/uL 0.1-1.0 Abs Eosinophils 0.1 K/uL 0.0-0.5 Abs Basophils 0.0 K/uL 0.0-0.3 Laboratory test finding 06/07/2019 [facility] TSH 1.58 uIU/mL 0.35-4.94 Basic (BMP) 06/07/2019 [facility] Sodium 140 mmol/L 135-146 4 Potassium 4.2 mmol/L 3.5-5.2 Chloride# 105 mmol/L 97-110 5 Carbon Dioxide 26 mmol/L 24-34 Glucose 124 mg/dL High 70-105 BUN 17 mg/dL 6-26 Creatinine 0.8 mg/dL 0.5-1.4 Calcium 9.1 mg/dL 8.5-10.5 6 Female Egfr 76 >60 7 Male Egfr 91 >60 8 Anion Gap 9 mmol/L 5-15 9 Hemoglobin A1c 06/07/2019 [facility] Hemoglobin A1c 6.6 % High 4.1-5.9 Estimated Average Glucose Calc 143 mg/dL High 71-140 CBC with Auto Diff-fcmg 04/17/2019 [facility] WBC 4.8 K/uL 4.1-11.0 10 RBC 4.49 M/uL 4.00-5.40 Hemoglobin 13.7 gm/dL 12.0-16.0 Hematocrit 40.4 % 36.0-47.0 MCV 90.0 fL 80.0-97.0 MCH 30.4 pg 27.0-32.0 MCHC 33.8 g/dL 32.0-36.0 RDW 12.9 % 11.5-14.5 PLT Count 224 K/ul 140-400 MPV 8.3 FL 7.1-10.7 Neutrophil 53.8 % 35.0-75.0 Lymphocyte 36.2 % 16.0-52.0 Monocyte 6.5 % 2.0-10.0 Eosinophil 2.6 % 0.0-5.0 Basophil 0.9 % 0.0-4.0 Abs Neutrophils 2.6 K/uL 2.1-8.0 Abs Lymphocytes 1.7 K/uL 0.8-5.5 Abs Monocytes 0.3 K/uL 0.1-1.0 Abs Eosinophils 0.1 K/uL 0.0-0.5 Abs Basophils 0.0 K/uL 0.0-0.3 Hepatic Panel (LFT) 04/17/2019 [facility] Total Protein 7.1 g/dL 6.0-8.0 Albumin 4.2 g/dL 3.6-4.9 Total Bilirubin 0.4 mg/dL 0.1-1.3 Direct Bilirubin 0.1 mg/dL 0.0-0.4 Alkaline Phosphatase 46 U/L 24-140 Alt 22 U/L 3-42 Ast 17 U/L 8-42 Basic (BMP) 04/17/2019 [facility] Sodium 140 mmol/L 135-146 11 Potassium 4.2 mmol/L 3.5-5.2 Chloride# 102 mmol/L 97-110 12 Carbon Dioxide 27 mmol/L 24-34 Glucose 95 mg/dL 70-105 BUN 14 mg/dL 6-26 Creatinine 0.7 mg/dL 0.5-1.4 Calcium 10.1 mg/dL 8.5-10.5 13 Female Egfr 89 >60 14 Male Egfr 97 >60 15 Anion Gap 11 mmol/L 5-15 16 1 6 mos 2 Per NCEP ATP III Guidelines: Results lower than 40 mg/dL are suggestive of increased risk for coronary artery disease. Results > or = to 60 mg/dL are considered a negative risk factor. 3 Per NCEP ATP III Guidelines: Normal Population <130 Patients with medical conditions: CHD/DM Optimal: <100 Borderline high: 130-159 High: 160-189 Very high: >189 4 Updated reference range on new analyzer 5 Updated reference range on new analyzer 6 Updated reference range 01-11-2019 7 Concerning GFR Guidelines for Americans: Normal function or mild renal disease, if clinically at risk: >/= 60 mL/min Moderately decreased: 30-59 Severely decreased: 15-29 Renal failure: <15 There is reduced accuracy above 60ml/min/1.73 m squared, but the numeric value may be clinically useful in the near 60 range 8 Concerning GFR Guidelines: Normal function or mild renal disease, if clinically at risk: >/= 60 mL/min Moderately decreased: 30-59 Severely decreased: 15-29 Renal failure: <15 There is reduced accuracy above 60ml/min/1.73 m squared, but the numeric value may be clinically useful in the near 60 range Glomerular Filtration Rate (GFR) is estimated based on the CKD-EPI equation, which assumes a steady state for [...] drugs that are excreted by the kidneys. 9 Updated Reference Range 10 today 11 Updated reference range on new analyzer 12 Updated reference range on new analyzer 13 Updated reference range 01-11-2019 14 Concerning GFR Guidelines for Americans: Normal function or mild renal disease, if clinically at risk: >/= 60 mL/min Moderately decreased: 30-59 Severely decreased: 15-29 Renal failure: <15 There is reduced accuracy above 60ml/min/1.73 m squared, but the numeric value may be clinically useful in the near 60 range 15 Concerning GFR Guidelines: Normal function or mild renal disease, if clinically at risk: >/= 60 mL/min Moderately decreased: 30-59 Severely decreased: 15-29 Renal failure: <15 There is reduced accuracy above 60ml/min/1.73 m squared, but the numeric value may be clinically useful in the near 60 range Glomerular Filtration Rate (GFR) is estimated based on the CKD-EPI equation, which assumes a steady state for [...] drugs that are excreted by the kidneys. 16 Updated Reference Range Procedures Date Code Description Status 10/11/2018 [id number] Colonoscopy Completed 06/29/2018 [id number] Mammogram Completed 07/16/2016 [id number] Bone Mineral Density Test Completed 06/06/2015 [id number] Mammogram Completed Medical Devices Description No Information Available Encounters Type Date Location Provider Dx Diagnosis Office Visit 04/17/2019 [facility] Guadalupe Santa MD R10.11 RIGHT upper quadrant 11:15a pain Office Visit 03/23/2019 [facility] Tea Murray PA R07.89 Other chest pain 8:15a Z68.34 Body mass index (BMI) 34.0-34.9, adult Office Visit 02/02/2019 2:00p [facility] Guadalupe Santa MD Z01.818 Encounter for other preprocedural examination H25.13 Age-related nuclear cataract, bilateral E78.2 Mixed hyperlipidemia J30.2 Other seasonal allergic rhinitis L40.9 Psoriasis, unspecified I10 Essential (primary) hypertension E11.9 Type 2 diabetes mellitus without complications K76.0 Fatty (change of) liver, not elsewhere classified Assessments Date Code Description Provider 06/15/2019 E66.9 Obesity, unspecified Guadalupe Santa MD 06/15/2019 Z00.00 Encounter for general adult medical Guadalupe Santa MD examination without abnormal findings 06/15/2019 E78.2 Mixed hyperlipidemia Guadalupe Santa MD 06/15/2019 I10 Essential (primary) hypertension Guadalupe Santa MD 06/15/2019 E11.9 Type 2 diabetes mellitus without Guadalupe Santa MD complications 06/15/2019 J30.2 Allergic rhinitis Guadalupe Santa MD 06/15/2019 L40.9 Psoriasis Guadalupe Santa MD 06/15/2019 K76.0 Fatty (change of) liver, not elsewhere Guadalupe Santa MD classified 06/15/2019 Z68.34 Body mass index (BMI) 34.0-34.9, adult Guadalupe Santa MD 06/07/2019 E78.2 Mixed hyperlipidemia Guadalupe Santa MD 06/07/2019 E78.2 Mixed hyperlipidemia Schedule, Laboratory 06/07/2019 I10 Essential (primary) hypertension Guadalupe Santa MD 06/07/2019 I10 Essential (primary) hypertension Schedule, Laboratory 06/07/2019 E11.9 Type 2 diabetes mellitus without Guadalupe Santa MD complications 06/07/2019 E11.9 Type 2 diabetes mellitus without Schedule, Laboratory complications 06/07/2019 E78.2 Mixed hyperlipidemia [facility] 06/07/2019 I10 Essential (primary) hypertension [facility] 06/07/2019 E11.9 Type 2 diabetes mellitus without [facility] complications 05/23/2019 I10 Essential (primary) hypertension Guadalupe Santa MD 05/23/2019 E78.2 Mixed hyperlipidemia Guadalupe Santa MD 04/17/2019 R10.11 RIGHT upper quadrant pain Guadalupe Santa MD 04/17/2019 R10.11 RIGHT upper quadrant pain Guadalupe Santa MD 04/17/2019 R10.11 RIGHT upper quadrant pain Schedule, Laboratory 04/17/2019 R10.11 RIGHT upper quadrant pain [facility] 04/05/2019 H25.13 Age-related nuclear cataract, bilateral Guadalupe Santa MD 04/05/2019 I10 Essential (primary) hypertension Guadalupe Santa MD 04/05/2019 E11.9 Type 2 diabetes mellitus without Guadalupe Santa MD complications 04/05/2019 E78.2 Mixed hyperlipidemia Guadalupe Santa MD 03/23/2019 R07.89 Other chest pain Tea Murray PA 03/23/2019 Z68.34 Body mass index (BMI) 34.0-34.9, adult Tea Murray PA 03/07/2019 H25.13 Age-related nuclear cataract, bilateral Guadalupe Santa MD 03/07/2019 I10 Essential (primary) hypertension Guadalupe Santa MD 03/07/2019 E11.9 Type 2 diabetes mellitus without Guadalupe Santa MD complications 02/02/2019 Z01.818 Encounter for other preprocedural examination Guadalupe Santa MD 02/02/2019 H25.13 Age-related nuclear cataract, bilateral Guadalupe Santa MD 02/02/2019 E78.2 Mixed hyperlipidemia Guadalupe Santa MD 02/02/2019 J30.2 Allergic rhinitis Guadalupe Santa MD 02/02/2019 L40.9 Psoriasis Guadalupe Santa MD 02/02/2019 I10 Essential (primary) hypertension Guadalupe Santa MD 02/02/2019 E11.9 Type 2 diabetes mellitus without Guadalupe Santa MD complications 02/02/2019 K76.0 Fatty (change of) liver, not elsewhere Guadalupe Santa MD classified 01/16/2019 E78.2 Mixed hyperlipidemia Guadalupe Santa MD 01/16/2019 I10 Essential (primary) hypertension Guadalupe Santa MD Plan of Treatment Future Appointment(s):12/18/2019 7:35 am - Schedule, Laboratory at [facility]2019 1:00 pm - Guadalupe Santa MD at [facility]07/17/2019 2:00 pm - [facility] ([facility])06/15/2019 - Guadalupe Santa MDE66.9 Obesity , unspecifiedComments:Counseled about strategies for weight loss and the impact of weight on chronic medical problems.Work on healthy lifestyle, with regular exercise (20 min daily will help) and eat a healthy diet. Formal diet plans work best.She has gained 3 pounds since the last office visit. She will start working on lose weight. The patient was educated about portion control and [employer] casimiro for calorie counting. goal calorie count is around 1200 calorie per day.Z00.00 Encounter for general adult medical examination without abnormal findingsComments:Annual medicare well visit done. Updated list of consulting doctors. Updated medication list [facility] wellness exam form. Counseled about fall prevention. Her mammogram is due after 06/29.Follow up:6- months follow up with fasting labs prior.E78.2 Mixed hyperlipidemiaNew Labs: Lipid Treatment, Scheduled: 12/18/19Comments:Cholesterol at goal. She will continue taking simvastatin with benefit. LDL is 78. Liver enzymes are normal.I10 Essential (primary) hypertensionComments:At goal on current medication - keep up the good work. Recommend regular exercise, healthy diet and minimize salt intake to maximize control of blood pressure.Her repeated blood pressure was [id number]/78 in the office.E11.9 Type 2 diabetes mellitus without complicationsNew Medication:Aspirin 81 81 mg - 1 by mouth every dayNew Labs:Basic (BMP), Scheduled: 12/18/19Hemoglobin A1c, Scheduled: 12/18/19Comments :Diabetes is in the diabetic range. HbA1c is 6.6. She is taking statins. She was recommended to take aspirin 81 mg daily to protect her from heart attack and strokes.J30.2 Allergic rhinitisComments:She is taking cetirizine for her allergies with benefit. Continue current medication.L40.9 PsoriasisComments: Controlled with steroid cream. Continue with this.K76.0 Fatty (change of) liver , not elsewhere classifiedComments:This improved on CT scan done in 08/2018. Liver enzymes are normal. Advised to keep her weight under control.Z68.34 Body mass index (BMI) 34.0-34.9, adultComments:The BMI is the ratio between height and weight. goal for a person over age 65 is between 23 and 30. You are overweight. Work on healthy lifestyle, with regular exercise (20 min daily will help) and eat a healthy diet. formal diet plans work best. Functional Status Functional Condition Comment Date Status no hearing aids 02/02/2019 Active Bifocal glasses Active Complete lower and upper and lower dentures Active Mental Status Description No Information Available Referrals Description No Information Available
[2019-07-05 12:41] VITALS: BP 122/61
--- NOTE | 2019-07-05 12:56 | ED ---
Lower Extremity - HPI Summary HPI Summary: 69 yr old with left medial foot pain. Onset over this past weekend. The patient began a walking program about 2 years ago and over the past several months increased her distance. She has been walking about 4 miles a day for a few months. She denies injury or fall. She states that she has had pain in the medial left foot that is worse with weight bearing, but not worse with palpation. She has no swelling, no bruising, no redness. - History of Current Complaint Chief Complaint: UCLowerExtremity Stated Complaint: LEFT FOOT INJURY/PAIN Time Seen by Provider: 07/05/19 12:41 Pain Intensity: 8 - Allergies/Home Medications Allergies/Adverse Reactions: Allergies Allergy/AdvReac Type Severity Reaction Status Date / Time No Known Allergies Allergy Verified 07/05/19 12:36 PMH/Surg Hx/FS Hx/Imm Hx Cardiovascular History: Reports: Hx Hypertension Denies: Other Cardiovascular Problems/Disorders Respiratory History: Denies: Other Respiratory Problems/Disorders GI History: Denies: Other GI Disorders History: Reports: Hx Kidney Stones Musculoskeletal History: Reports: Other Musculoskeletal History - current left carpal tunnel issue Sensory History: Reports: Hx Contacts or Glasses - glasses Denies: Hx Hearing Aid Opthamlomology History: Reports: Hx Contacts or Glasses - glasses Neurological History: Denies: Other Neuro Impairments/Disorders - Cancer History Cancer Type, Location and Year: OVARIAN CANCER - Surgical History Surgery Procedure, Year, and Place: hysterectomy, 1993 - [facility] [place]. cholecystectomy, 2010 -[place]. 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 left wrist ganglion cyst removal march 2018 - [facility] [place]. CARPAL TUNNEL Hx Anesthesia Reactions: Yes - PONV Infectious Disease History: No Infectious Disease History: Denies: Traveled Outside the [place] in Last 30 Days - Family History Known Family History: Negative: Cardiac Disease, Hypertension - Social History Alcohol Use: None Substance Use Type: Reports: None Smoking Status (MU): Former Smoker Type: Cigarettes Amount Used/How Often: 1ppd for23 yrs Review of Systems Constitutional: Negative Positive: Other - medial left foot pain All Other Systems Reviewed And Are Negative: Yes Physical Exam Triage Information Reviewed: Yes Vital Signs On Initial Exam: Initial Vitals Temp Pulse Resp BP Pulse Ox 98.7 F 74 16 122/61 97 07/05/19 12:36 07/05/19 12:36 07/05/19 12:36 07/05/19 12:36 07/05/19 12:36 Vital Signs Reviewed: Yes Appearance: Positive: Well-Appearing, No Pain Distress Skin: Positive: Warm, Skin Color Reflects Adequate Perfusion Head/Face: Positive: Normal Head/Face Inspection Eyes: Positive: EOMI ENT: Positive: Normal ENT inspection Respiratory/Lung Sounds: Positive: Other - normal effort Cardiovascular: Positive: Pulses are Symmetrical in both Upper and Lower Extremities Abdomen Description: Negative: Distended Musculoskeletal: Positive: Other - left foot without deformity, without swelling , without bruising. Non tender to palpation. She has a strong DP and PT pulse left foot. Neurological: Positive: Alert, Oriented to Person Place, Time, CN Intact II-III Psychiatric: Positive: Normal Diagnostics - Vital Signs Vital Signs Temp Pulse Resp BP Pulse Ox 07/05/19 12:36 98.7 F 74 16 122/61 97 - Laboratory Lab Statement: Any lab studies that have been ordered have been reviewed, and results considered in the medical decision making process. 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 Recommend no distance walking now. follow up with ortho for further work up and reevaluation. - Diagnoses Provider Diagnoses: Left foot pain Discharge ED - Sign-Out/Discharge Documenting (check all that apply): Patient Departure All imaging exams completed and their final reports reviewed: Yes - Discharge Plan Condition: Good Disposition: HOME Patient Education Materials: Foot Sprain (ED), Foot Fracture in Adults (ED) Referrals: Guadalupe Santa MD [Primary Care Provider] - Marcos Cole MD [Medical Doctor] - 2 Days Additional Instructions: No distance walking at this point. Follow up with orthopedics for evaluation for possible stress fracture. - Billing Disposition and Condition Condition: GOOD Disposition: Home
== END 2019-07-05 13:26 | disposition home or self-care (01) ==
LOC: UCCORT 12:14
DX: M79.672 Pain in left foot (principal); I10 Essential (primary) hypertension; Z87.891 Personal history of nicotine dependence
CPT/HCPCS: 99211; G0463